=== PATIENT | male | born 1970 | race Caucasian/White ===

== ENCOUNTER 2018-10-29 14:48 | Emergency (ER) | payer BC, SELFPAY ==
[2018-10-29 14:49] VITALS: BP 175/121; PULSE 91; RESP 17; TEMP 36.8; O2SAT 95; BMI 37.0
--- NOTE | 2018-10-29 16:12 | EKG12_ITS ---
Test Reason : Blood Pressure : / mmHG Vent. Rate : 081 BPM Atrial Rate : 081 BPM P-R Int : 162 ms QRS Dur : 094 ms QT Int : 370 ms P-R-T Axes : 086 077 049 degrees QTc Int : 429 ms Normal sinus rhythm with sinus arrhythmia Normal ECG Confirmed by AMANDA DELA CRUZ, BASSAM ([id number]), scientific editor CRISTHIAN CRAMER ([id number]) on 10/31/2018 9:00:06 AM Referred By: LARA Confirmed By:BASSAM PATEL MD
--- NOTE | 2018-10-29 16:21 | NURSING ---
NO OLD EKGS
--- NOTE | 2018-10-29 16:22 | ED.DCSUM_ITS ---
History of Present Illness Chief Complaint: Hypertension Detail of Chief Complaint: Sent from urgent care for high blood pressure Informant: Patient Onset: Month(s) - Told his blood pressure was elevated when he last saw his doctor 2017. Context: Gradual Onset Timing: Continuous Quality: Asymptomatic high blood pressure Location: Not applicable Current Severity: Moderate Maximum Severity: Moderate Worsened by: Unknown Relieved by: Nothing Associated Symptoms: No associated symptoms Narrative: Patient is a 48-year-old male with history of GERD. He was told his blood pressure was elevated 2017. He did not follow-up with his doctor. He is present on no antihypertensive medications. Denies headache. Denies visual, ocular auditory symptoms. He denies neck pain. He denies card iac respiratory symptoms. He denies GI symptoms other than heartburn secondary to GERD. He denies black or maroon stool. He denies orthostatic symptoms. He denies paresthesia, anesthesia or motor weakness. He denies problems with balance or gait. He has been taking NSAIDs for generalized pain. Prior similar symptoms: No Recent Illness/Hospitalization: No - Past Medical History (1) History of gastroesophageal reflux (GERD) Status: Acute Past Medical History - Allergies and Home Meds Allergies/Adverse Reactions: Allergies No Known Allergies Allergy (Verified 10/29/18 14:49) Primary Care Physician: Edmar Faustin NP-C [Primary Care Provider] - Prior records reviewed: Yes Surgical History: no surgical history Lives: Spouse/ Significant Other Smoking Status: Never smoker Alcohol: Occasional Drugs: None Review of Systems General: Denies: Chills, Fever, Sweats Eyes: Denies: Visual changes - bilaterally, Blurred Vision - bilaterally, Diplopia ENT: Denies: Rhinorrhea, Sore throat Cardiovascular: Denies: Chest pain, Palpitations Respiratory: Denies: Dyspnea, Cough, Dyspnea on exertion Gastrointestinal: Denies: Abdominal pain, Nausea, Vomiting, Diarrhea, Melena, Hematochezia Genitourinary: Denies: Dysuria, Hematuria, Frequency Musculoskeletal: Denies: Back pain, Extremity Pain Skin: Denies: Rash, Wounds Neurological: Denies: Headache, Weakness, Parasthesia, Numbness Hematologic: Denies: Easy bruising, Easy bleeding Allergy: Denies: Uticaria, Swelling of the mouth, Swelling of the tongue Physical Exam Vital Signs/Narrative: Vital Signs Temp Pulse Resp BP Pulse Ox 10/29/18 14:49 98.3 F 91 17 175/121 H 95 Inital Vital Signs reviewed: Yes General: Well nourished, Well developed, No Acute Distress Head: Normocephalic, Atraumatic. Negative for: Tenderness Eyes: Perrl, EOMI. Negative for: Pale conjunctiva, Scleral icterus ENT: Moist mucous membranes, No rhinorrhea, TM's clear. Negative for: Nasal con gestion, Sinus tenderness Neck: Supple, Nontender, No lymphadenopathy, No JVD Cardiovascular: Regular rate, Regular rhythm, No murmurs, Normal S1, Normal S2 Respiratory: No distress, CTA bilaterally, Chest nontender Abdomen: Soft, Nontender, Nondistended, Normal bowel sounds Back: Nontender, Normal Inspection. Negative for: CVA tenderness, Spinal tenderness Extremities: Nontender, No edema Skin: Normal color, No rash Neurological: Alert, Oriented x3, Cranial nerves II-XII grossly intact, Normal Strength, Normal Sensation, Normal DTR - There is no clonus or Babinski sign., Normal Gait Psychological: Normal affect, Normal Mood Diagnostic/Tx/Re-eval Laboratory Results 10/29/18 10/29/18 10/29/18 16:30 16:30 17:36 WBC 8.7 RBC 4.99 Hgb 15.0 Hct 45.3 MCV 90.8 MCH 30.1 MCHC 33.1 RDW Std Deviation 49.5 H RDW Coeff of Octavio 14.9 H Plt Count 177 MPV 10.5 Immature Gran % (Auto) 0.600 Neut % (Auto) 78.9 H Lymph % (Auto) 10.8 L [place] % (Auto) 7.8 Eos % (Auto) 1.4 Baso % (Auto) 0.5 Absolute Neuts (auto) 6.9 Absolute Lymphs (auto) 0.94 Nucleated RBC % 0 Sodium 137 Potassium 3.5 Chloride 103 Carbon Dioxide 27.0 Anion Gap 7 BUN 12 Creatinine 0.85 Estim Creat Clear Calc 115.66 Est GFR (MDRD) Af Amer 125 Est GFR (MDRD) Non-Af 103 BUN/Creatinine Ratio 14.2 Glucose 110 H Calcium 9.2 Urine Color Yellow Urine Clarity Sl. Cloudy Urine pH 7.0 Ur Specific [place] 1.010 Urine Protein Negative Urine Glucose (UA) Normal Urine Ketones Negative Urine Occult Blood Negative Urine Nitrite Negative Urine Bilirubin Negative Urine Urobilinogen Normal Ur Leukocyte Esterase Negative Urine RBC 0 SEEN Urine WBC 0 SEEN Ur Squamous Epith Cells 0 SEEN Amorphous Sediment 1+ Urine Bacteria 0 SEEN Urine Mucus 0 SEEN There is no evidence of endorgan injury. Since there is no evidence of endorgan injury patient will receive lisinopril in the department and discharged with prescription for lisinopril. - EKG Initial EKG Interpretation: Sinus Rhythm - Ventricular rate is 81. WI interval is 160 ms. QS duration is 94 ms. QT durations 370 ms a QTC of 429 ms. [place] is normal. There is evidence of respiratory variation. Otherwise the EKG is normal. - Medical Decision Making With no recent labs and elevated blood pressure since January 2018 will obtain blood work to evaluate for endorgan injury. If blood pressure remains elevated we will treat his elevated blood pressure. There is a concern for renal injury since he has been taking NSAIDs. ED Disposition - Plan for ED Patient: Disposition: Home or Assisted Living Diagnosis: Hypertension Instructions: HYPERTENSION, New (Begin Treatment) Prescriptions: Lisinopril [Zestril] 10 mg PO DAILY #30 tab Prescription Printed Referrals: Edmar Faustin, JUANCARLOS-C [Primary Care Provider] - 1-2 Weeks
[2018-10-29 16:38] VITALS: BP 170/116; PULSE 86; RESP 16; O2SAT 96
[2018-10-29 17:00] LABS: Anion Gap 7 (5-15); BUN 12 mg/dL (7-18); BUN/Creat Ratio 14.2 RATIO (10-20); Calcium,Total 9.2 mg/dL (8.5-10.1); Chloride 103 mmol/L (98-107); Creatinine, Serum 0.85 mg/dL (0.70-1.30); EST Glomerular Filtration Rate 103 mL/min (>60); Est Glom Filt Rate - Afr Amer 125 mL/min (>60); Estimated Creatinine Clearance 115.66 ml/min; Glucose 110 mg/dL (74-106); Potassium 3.5 mmol/L (3.5-5.1); Sodium Level 137 mmol/L (136-145)
[2018-10-29 17:09] LABS: Absolute Lymphocyte Count 0.94 X10^3/uL (0.83-4.51); Absolute Neutrophil Count 6.9 X10^3/uL (2.0-7.7); Basophil# 0.04 X10^3/uL; Basophil% 0.5 % (0-1); Eosinophil# 0.12 X10^3/uL; Eosinophils% 1.4 % (0-5); Hematocrit 45.3 % (40-54); Lymphocyte # 0.94 X10^3/ul (4.0); Lymphocyte % 10.8 % (19-41); Mean Corp Hgb Conc 33.1 g/dL (32-36); Mean Corpuscular Hgb 30.1 pg (27.0-32.0); Mean Corpuscular Volume 90.8 fL (80-94); Mean Platelet Vol. 10.5 fl (6.2-12.0); Monocyte# 0.68 X10^3/uL; Monocyte% 7.8 % (0-10); NRBC Flagged by Analyzer 0 % (0-5); Neutrophil % 78.9 % (47-70); Platelet Count 177 K/mm3 (150-450); RBC Distribution Width CV 14.9 % (11.6-14.6); RBC Distribution Width SD 49.5 fl (35.1-43.9); Red Blood Count 4.99 M/mm3 (4.6-6.2); White Blood Count 8.7 K/mm3 (4.4-11.0)
[2018-10-29 17:42] LABS: Bacteria 0 SEEN /hpf (None Seen); Mucous, Urine 0 SEEN /hpf (<or=2+); Red Blood Cells-Urine 0 SEEN /hpf (0-5); Squamous Epithelial Cells - UA 0 SEEN /hpf (0-5)
[2018-10-29 18:26] LABS: Color, Urine Yellow (Yellow); Glucose, Dipstick Normal (Normal); Ketone-Dipstick Negative (Negative); Leukocyte Esterase-Dipstick Negative /ul (Negative); Nitrite-Dipstick Negative (Negative); Occult Blood-Urine Negative /ul (Negative); Protein-Dipstick Negative (Negative); Urine Bilirubin Dipstick Negative (Negative); Urine Clarity Sl. Cloudy (Clear); Urine Urobilinogen Normal (Normal)
[2018-10-29 18:34] LABS: Amorphous Sediment 1+; White Blood Cells 0 SEEN /hpf (0-5)
[2018-10-29 18:45] VITALS: BP 200/113; PULSE 92; RESP 16; O2SAT 96
[2018-10-29 18:51] VITALS: BP 187/107
[2018-10-29] MEDS: Lisinopril 10 MG Tablet PO (20:49)
[2018-10-29 20:50] VITALS: BP 167/121; PULSE 89; RESP 18; O2SAT 96
== END 2018-10-29 20:55 | disposition home or self-care (01) ==
PROVIDERS: Emergency Provider Emergency Medicine; Family Provider Nurse Practitioner Family; PCP Nurse Practitioner Family
DX: I10 Essential (primary) hypertension (principal); K21.9 Gastro-esophageal reflux disease without esophagitis
CPT/HCPCS: 80048; 81001; 85025; 93005; 99285

== ENCOUNTER 2023-01-16 15:20 | Inpatient (IN) | payer BC, SELFPAY ==
[2023-01-16] VITALS (8 sets, daily range): BP systolic 157–216; BP diastolic 07–147; PULSE 80–121; RESP 16–18; TEMP 36.1–37.2; O2SAT 94–100; BMI 32.7; BMI 32.2
--- NOTE | 2023-01-16 16:01 | EX.ED.DYSGE1 ---
HPI <NOEMÍ Ferro - Last Filed: 01/16/23 17:45> History of Present Illness Chief Complaint: Abd Pain Narrative Narrative: Patient is a 52-year-old male with history of hypertension, alcohol abuse who presents to the emergency department for abdominal pain has been ongoing for 24 hours. Patient states he has nausea and vomiting, significant abdominal cramping. He does have history of pancreatitis 15 years ago. He is does chew tobacco. He does use marijuana however no other drugs. He states that the cramping has been ongoing and has been getting worse. He is here for evaluation. Denies any fever or chills, denies any blood in his stool or vomit PFSH <NOEMÍ Ferro - Last Filed: 01/16/23 17:45> PFSH Home Medications Omeprazole [Prilosec] 20 mg PO DAILY 06/11/16 [History Last Taken 06/11/16] albuterol sulfate 90 mcg/actuation aerosol inhaler 2 puff inhalation Q4H PRN PRN Wheezing 10/29/18 [History Last Taken Unknown] lisinopril 10 mg tablet 10 mg PO DAILY #30 tabs 10/29/18 [Rx Last Taken Unknown] Allergy/AdvReac Type Severity Reaction Status Date / Time No Known Allergies Allergy Verified 01/16/23 15:22 Social History Smoking Status: Never smoker ROS <NOEMÍ Ferro - Last Filed: 01/16/23 17:45> ROS ED ROS Narrative Constitutional: Negative for fever, chills, weight loss, weakness Eyes: Negative for vision loss, vision change, double vision ENT: Negative for any sore throat, ear pain, congestion Cardiovascular: Negative for any chest pain, tightness, palpitations Respiratory: Negative for any cough, sputum production, hemoptysis, dyspnea, dyspnea on exertion, orthopnea Gastrointestinal: Negative for any diarrhea, constipation, blood in stool, blood in vomit. Positive for abdominal pain, nausea, vomiting : Negative for any urinary frequency, dysuria, retention, blood in urine Muscle skeletal: Negative for any muscle joint pain, stiffness, myalgias, arthralgias, neck pain, back pain Neurological: Negative for any headache, syncope, numbness or tingling, dizziness Skin: Negative for any rashes, lumps, itching, abrasions, lacerations Psychiatric: Negative for any depression, anxiety, stress, suicidal ideation, homicidal ideation Hematologic: Negative for any easy bruising, excessive bruising, easy bleeding Allergies: Negative for any eczema, hives, rash EXAM <NOEMÍ Ferro - Last Filed: 01/16/23 17:45> Physical Exam Narrative Exam Narrative: Vital signs reviewed. Patient does appear to be in mild discomfort. HEET: Head normocephalic atraumatic, TMs clear bilaterally. Posterior pharynx is clear, moist mucous membranes. Nares clear bilaterally. Neck: Supple with no lymphadenopathy or tenderness. No signs of meningismus, negative jolt sign. Cardiac: Regular rate and rhythm no murmurs gallops or rubs, equal peripheral pulses bilaterally. Respiratory: Lungs clear to auscultation bilaterally. No chest tenderness. Abdomen: Soft, nondistended. No abdominal bruit or pulsatile masses. No hepatosplenomegaly. Patient tenderness worse to the left lower quadrant, right upper quadrant. It is slight generalized, difficult to localize. Active bowel sounds. Extremities: No peripheral edema, no signs of gross trauma or deformity. Active full range of motion of all extremities. Neuro: Cranial nerves II through XII intact, no focal neurological deficits. Skin: Clean dry and intact with no rash, purpura, petechiae, vesicles or pustules. Backs/flank: No CVA tenderness, no midline spinal tenderness, no deformity. Psych: Normal mood and affect. No SI, HI or acute psychosis. Const Vital Signs: 01/16/23 15:21 01/16/23 16:50 Temperature 97 F L Temperature Source Temporal Pulse Rate 103 H 87 Respiratory Rate 18 16 Blood Pressure 191/147 H 213/117 H Blood Pressure Mean 161 149 Pulse Ox 97 96 Oxygen Delivery Method Room Air <Dr. Joe Mccoy MD - Last Filed: 01/16/23 16:28> Physical Exam Const Vital Signs: 01/16/23 15:21 01/16/23 16:50 Temperature 97 F L Temperature Source Temporal Pulse Rate 103 H 87 Respiratory Rate 18 16 Blood Pressure 191/147 H 213/117 H Blood Pressure Mean 161 149 Pulse Ox 97 96 Oxygen Delivery Method Room Air MDM <NOEMÍ Ferro - Last Filed: 01/16/23 17:45> [facility] Lab Data Labs: Laboratory Results - last 24 hr 01/16/23 15:30 WBC 19.9 H RBC 6.39 H Hgb 15.5 Hct 49.6 MCV 77.6 L MCH 24.3 L MCHC 31.3 L RDW Std Deviation 51.3 H RDW Coeff of Octavio 19.3 H Plt Count 264 MPV 10.6 Immature Gran % (Auto) 0.500 Neut % (Auto) 89.0 H Lymph % (Auto) 3.[address] [place] % (Auto) 6.5 Eos % (Auto) 0.1 Baso % (Auto) 0.2 Absolute Neuts (auto) 17.7 H Absolute Lymphs (auto) 0.73 L Sodium 135 L Potassium 3.2 L Chloride 98 Carbon Dioxide 28.0 Anion Gap 9 BUN 12 Creatinine 0.89 Estim Creat Clear Calc 102.53 Est GFR (MDRD) Af Amer 116 Est GFR (MDRD) Non-Af 96 BUN/Creatinine Ratio 13.5 Glucose 107 H Calcium 9.1 Total Bilirubin 1.80 H AST 37 ALT 50 Alkaline Phosphatase 83 Total Protein 8.0 Albumin 3.9 Globulin 4.1 Albumin/Globulin Ratio 1.0 Lipase 2476 H Radiography Diagnostic Testing: Clinical Impression(s) from Imaging Studies Abdomen/Pelvis CT 01/16/23 16:57 IMPRESSION: Significant inflammation surrounding the pancreas. Correlate for acute pancreatitis. No fluid collection. Cholelithiasis without findings to suggest acute cholecystitis. No biliary ductal dilatation or choledocholithiasis seen. Electronically Signed: Moiz Wheat MD at 17:23 EDT , Treatment and Re-Evaluation :: Patient appears in mild discomfort secondary to abdominal pain. Presented to the emergency department for 2 days of abdominal pain, nausea and vomiting. Patient states the pain has been getting worse, he does have history of pancreatitis. On initial examination, differential diagnose includes acute appendicitis, diverticulitis, acute cholecystitis, pancreatitis. Patient will receive basic laboratory values including a CBC CMP, lipase. Patient will receive a CT scan of the abdomen pelvis IV contrast, fluids, Zofran as well as some pain medicine. Patient's laboratory values were positive for leukocytosis with white blood count of 19.9. Patient's chemistries show slight hyponatremia with a potassium of 3.2, sodium 135. Total bili was 1.8, patient's lipase was grossly elevated at 2476. Patient CT scan of the abdomen pelvis shows significantly inflammation surrounding the pancreas. Acute pancreatitis, cholelithiasis without findings to suggest acute cholecystitis. No biliary ductal dilatation or choledocholithiasis seen. I spoke with hospitalist, patient did have relief severe pain after 2 doses of morphine, Toradol. I spoke with the hospitalist regarding the patient's elevated blood pressure, the patient will have that taken care of up on the floor. Hospitalist is aware. At this time, I spoke with the patient, I spoke with him regarding his drinking, at this time, patient is stable for admission <Dr. Joe Mccoy MD - Last Filed: 01/16/23 16:28> [facility] Lab Data Labs: Laboratory Results - last 24 hr 01/16/23 15:30 WBC 19.9 H RBC 6.39 H Hgb 15.5 Hct 49.6 MCV 77.6 L MCH 24.3 L MCHC 31.3 L RDW Std Deviation 51.3 H RDW Coeff of Octavio 19.3 H Plt Count 264 MPV 10.6 Immature Gran % (Auto) 0.500 Neut % (Auto) 89.0 H Lymph % (Auto) 3.[address] [place] % (Auto) 6.5 Eos % (Auto) 0.1 Baso % (Auto) 0.2 Absolute Neuts (auto) 17.7 H Absolute Lymphs (auto) 0.73 L Sodium 135 L Potassium 3.2 L Chloride 98 Carbon Dioxide 28.0 Anion Gap 9 BUN 12 Creatinine 0.89 Estim Creat Clear Calc 102.53 Est GFR (MDRD) Af Amer 116 Est GFR (MDRD) Non-Af 96 BUN/Creatinine Ratio 13.5 Glucose 107 H Calcium 9.1 Total Bilirubin 1.80 H AST 37 ALT 50 Alkaline Phosphatase 83 Total Protein 8.0 Albumin 3.9 Globulin 4.1 Albumin/Globulin Ratio 1.0 Lipase 2476 H Radiography Diagnostic Testing: Clinical Impression(s) from Imaging Studies Abdomen/Pelvis CT 01/16/23 16:57 IMPRESSION: Significant inflammation surrounding the pancreas. Correlate for acute pancreatitis. No fluid collection. Cholelithiasis without findings to suggest acute cholecystitis. No biliary ductal dilatation or choledocholithiasis seen. Electronically Signed: Moiz Wheat MD at 17:23 EDT , Treatment and Re-Evaluation Comments:: I have personally performed a face to face assessment of the patient and have reviewed the ALPHONSO Note. I performed a substantive portion of the visit including all aspects of the following. My castro findings include: History is gradual onset of a couple days lower abdominal pain worse on the left, along with nonbloody vomiting and diarrhea no fevers or chills. Exam is very tender in the left lower quadrant with some voluntary guarding, no rebound tenderness. Less tender left upper quadrant. Otherwise benign. Medical Decison Making. Suspect diverticulitis is most likely etiology, CT indicated along with labs given how tender he is. Other additions or changes: [None] Discharge Plan Triage Chief Complaint: Abd Pain ED Midlevel Provider: Delmer Cormier ED Provider: Joe Mccoy Dx/Rx/DC Orders Clinical Impression: History of medication noncompliance, Alcohol abuse, Acute alcoholic pancreatitis, Hypertension Prescriptions: No Action Omeprazole [Prilosec] 40 MG capsule 20 mg PO DAILY albuterol sulfate 1 PUFF inhaler 2 puff inhalation Q4H PRN PRN (Reason: Wheezing) Patient Comments: Inhale 2 Puffs as instructed every 6 hours as needed. lisinopril 10 MG tablet 10 mg PO DAILY Qty: 30 0RF Primary Care Provider: Edmar Faustin NP Referrals: Edmar Faustin NP, [employer]-C [Primary Care Provider] - Disposition Disposition: Acute Care Hospital [facility]
[2023-01-16] MEDS: 0.9% Normal Saline (1000mL) 1,000 ML 1000 ML IV (16:10)
[2023-01-16] MEDS: Ondansetron 4 MG/2 ML Vial IV (16:10)
[2023-01-16] MEDS: Morphine 4 MG/ML Syringe IV ×4 (16:11→23:16)
[2023-01-16] MEDS: Ketorolac 15 MG/ML Vial IV (16:29)
[2023-01-16 16:41] LABS: Hematocrit 49.6 % (40-54); Hemoglobin 15.5 g/dL (13.0-16.5); Mean Corp Hgb Conc 31.3 g/dL (32-36); Mean Corpuscular Hgb 24.3 pg (27.0-32.0); Mean Corpuscular Volume 77.6 fL (80-94); Mean Platelet Vol. 10.6 fl (6.2-12.0); Platelet Count 264 K/mm3 (150-450); RBC Distribution Width CV 19.3 % (11.6-14.6); RBC Distribution Width SD 51.3 fl (35.1-43.9); Red Blood Count 6.39 M/mm3 (4.6-6.2); White Blood Count 19.9 K/mm3 (4.4-11.0)
[2023-01-16 16:42] LABS: Absolute Neutrophil Count 17.7 X10^3/uL (2.0-7.7); Basophil% 0.2 % (0-1); Eosinophils% 0.1 % (0-5); Lymphocyte # 0.73 X10^3/ul (0.83-4.51); Lymphocyte % 3.7 % (19-41); Monocyte% 6.5 % (0-10); Neutrophil # 17.69 X10^3/uL (2.7-7.7); POSITIVE COUNT NO; POSITIVE DIFFERENTIAL NO; POSITIVE MORPHOLOGY NO
[2023-01-16 16:43] LABS: Absolute Lymphocyte Count 0.73 X10^3/uL (0.83-4.51); Basophil# 0.03 X10^3/uL; Eosinophil# 0.02 X10^3/uL; Monocyte# 1.29 X10^3/uL
[2023-01-16 16:47] LABS: AST(SGOT) 37 U/L (15-37); Alanine Aminotransfer ALT/SGPT 50 U/L (16-61); Albumin, Serum 3.9 g/dL (3.2-5.0); Alkaline Phosphatase 83 U/L (45-117); Anion Gap 9 (5-15); BUN 12 mg/dL (7-18); BUN/Creat Ratio 13.5 RATIO (10-20); Calcium,Total 9.1 mg/dL (8.5-10.1); Chloride 98 mmol/L (98-107); Creatinine, Serum 0.89 mg/dL (0.70-1.30); EST Glomerular Filtration Rate 96 mL/min (>60); Est Glom Filt Rate - Afr Amer 116 mL/min (>60); Estimated Creatinine Clearance 102.53 ml/min; Globulin 4.1 g/dL (2.2-4.2); Glucose 107 mg/dL (74-106); Lipase 2476 U/L (13-75); Potassium 3.2 mmol/L (3.5-5.1); Sodium Level 135 mmol/L (136-145)
--- NOTE | 2023-01-16 16:57 | CT_ITS ---
STUDY: CT ABDOMEN AND PELVIS WITH CONTRAST REASON FOR EXAM: Male, 52 years old. abdominal pain RADIATION DOSAGE (If Supplied By Facility): CTDIvol = ( 16.32 ) mGy, DLP = ( 1268.11 ) mGycm TECHNIQUE: IV 100mL Isovue-300 was administered. Transaxial images were obtained from the dome of the diaphragm to the symphysis pubis in the portal venous phase. Multiplanar coronal and sagittal images were reformatted. Individualized Dose Optimization Techniques Were Used For This CT. COMPARISON: No relevant prior comparison study available FINDINGS: LOWER CHEST: Lung bases are clear. No cardiomegaly or pericardial effusion. LIVER: The liver is normal in size, shape, and attenuation. No focal mass. GALLBLADDER AND BILIARY TREE: Small stone in the gallbladder lumen. No wall thickening or adjacent inflammation. No intra- or extrahepatic biliary ductal dilation. No choledocholithiasis seen. PANCREAS: The pancreatic parenchyma is homogenous without ductal dilatation. There is significant surrounding inflammatory stranding. No fluid collection seen. There is free fluid tracking along both paracolic gutters into the pelvis. SPLEEN: Normal size without focal cystic or solid mass. ADRENAL GLANDS: No nodules. KIDNEYS AND URETERS: Normal renal size and position. No hydronephrosis or nephrolithiasis. Simple cyst at the midpole of the left kidney. No specific follow-up recommended. PERITONEUM: No free air. Fluid tracks into the pelvis. No other fluid collection. BOWEL: Small hiatal hernia. Normal caliber small bowel. No obstruction. Colonic diverticulosis noted without diverticulitis. This is greatest at the sigmoid colon. No evidence of acute appendicitis. LYMPH NODES: No enlarged mesenteric or retroperitoneal lymph nodes. VESSELS: The aorta is normal in caliber with mild atherosclerotic calcification. URINARY BLADDER: Unremarkable. REPRODUCTIVE ORGANS: No pelvic masses. ABDOMINAL WALL: No discrete abdominal or pelvic wall hernia. BONES: No lytic or blastic abnormality. Mild degenerative change of the spine. Vacuum disc phenomenon at the lower lumbar spine. CT/Abdomen/Pelvis W IV Cont ONLY IMPRESSION: Significant inflammation surrounding the pancreas. Correlate for acute pancreatitis. No fluid collection. Cholelithiasis without findings to suggest acute cholecystitis. No biliary ductal dilatation or choledocholithiasis seen. Electronically Signed: Moiz Wheat MD at 17:23 EDT ,
--- NOTE | 2023-01-16 18:51 | PCM.HP.STD ---
HPI - General General Date of Admission: 01/16/23 Date of Service: 01/16/23 Chief Complaint: Abdominal pain HPI Narrative TASHIA JUAREZ, is a 52 M who presents to the emergency room at [facility] for evaluation of abdominal pain that has been present since last Monday. Pain basically is over the entire abdomen at this time, patient had quite a bit of alcohol to drink last Monday, he began having the abdominal pain Monday morning. Patient has had a past history of pancreatitis approximately 15 years ago. Labs obtained in the emergency room included a CBC which was abnormal for white blood cell count of 19.9, patient's potassium was low at 3.2, bilirubin was elevated at 1.8 and lipase was elevated to 2476. CT of the abdomen and pelvis was obtained which showed have again inflammation surrounding the pancreas, there was cholelithiasis noted without acute cholecystitis, no biliary ductal dilatation was noted and there was no evidence of choledocholithiasis. Patient will be admitted to [place] [address] for acute recurrent pancreatitis with hypokalemia, he will be given IV fluids and potassium replacement, patient has a history of hypertension but is not taking any medications-he went off these medications sometime ago. Patient will be placed on IV Vasotec, he will need to follow-up with his PCP regarding his blood pressure as an outpatient. Patient was placed on a clear liquid diet. Talked with the patient concerning any alcohol usage when he returns home and told him there was not a safe level of alcohol to imbibe due to the pancreatitis history. [facility] Home Medications Omeprazole [Prilosec] 20 mg PO DAILY 06/11/16 [History Last Taken 01/16/23] Allergy/AdvReac Type Severity Reaction Status Date / Time No Known Allergies Allergy Verified 01/16/23 15:22 Social History Smoking Status: Never smoker ROS Constitutional Constitutional: Denies anorexia, change in weight, chills, fatigue, fever(s), night sweats or weakness Eyes Eyes: Denies blurry vision, change in vision, discharge from eye(s) or eye pain Cardiovascular Cardiovascular: Denies chest pain, claudication, dyspnea on exertion, edema, lightheadedness, orthopnea or palpitations Respiratory/Chest Respiratory/Chest: Denies cough, hemoptysis, shortness of breath at rest or shortness of breath with exertion Gastrointestinal Gastrointestinal: Reports abdominal pain; Denies coffee ground emesis, constipation, diarrhea, dyspepsia, hematemesis, hematochezia, melena, nausea or vomiting Genitourinary Genitourinary: Denies dysuria, hematuria, urinary frequency, urinary hesitancy, urinary incontinence or urinary urgency Musculoskeletal Musculoskeletal: Denies back pain, joint pain, joint stiffness, joint swelling, myalgias or neck pain Neurologic Neurologic: Denies abnormal gait, abnormal speech, dizziness, focal weakness, headache(s), loss of vision, numbness, other visual disturbances, paresthesias, syncope or tingling Psychiatric Psychiatric: Denies anxiety, cognitive impairment, depression, irritability, mood swings or suicidal ideation Endocrine Endocrinology: Denies change in body appearance, cold intolerance, excessive sweating, heat intolerance, polydipsia or polyuria Hematologic/Lymphatic Hematologic/Lymphatic: Denies none, anemia, easy bleeding, easy bruising or lymphadenopathy Allergic/Immunologic Allergic/Immunologic: Denies rhinitis, urticaria, eczemia or asthma Vital Signs Vital Signs Vital Signs: 01/16/23 15:21 01/16/23 16:50 01/16/23 17:48 Temperature 97 F L Temperature Source Temporal Pulse Rate 103 H 87 80 Respiratory Rate 18 16 16 Respiratory Effort Blood Pressure 191/147 H 213/117 H 205/106 H Blood Pressure Mean 161 149 139 Blood Pressure Source Blood Pressure Position Blood Pressure Location Pulse Ox 97 96 99 Oxygen Delivery Method Room Air Room Air 01/16/23 18:35 01/16/23 18:42 Temperature 99 F Temperature Source Oral Pulse Rate 90 Respiratory Rate 18 Respiratory Effort Normal Blood Pressure 175/102 H Blood Pressure Mean 126 Blood Pressure Source Monitor Blood Pressure Position Semi-Fowlers Blood Pressure Location Right Arm Pulse Ox 95 Oxygen Delivery Method Room Air Weight Weight: 102 kg Body Mass Index (BMI) 32.2 Physical Exam Const alert, oriented x3, no apparent distress and healthy appearing General Appearance: cooperative, well kempt and well developed Orientation / Consciousness: awake, oriented to person, oriented to place and oriented to time HEENT normocephalic, head/scalp atraumatic, hearing grossly normal bilaterally and moist oral mucous membranes Eyes PERRL, EOMs intact bilaterally and conjunctivae normal Neck supple, no JVD, thyroid normal and no carotid bruits General: trachea midline Resp normal respiratory effort, no retractions, no use of accessory muscles and clear to auscultation bilaterally Auscultation: Negative for rales, rhonchi or wheezes Cardio regular rate, regular rhythm, S1 normal heart sound, S2 normal heart sound, no murmurs, no rub and no gallops GI non-distended GI Narrative: Patient's abdomen is diffusely tender, no rebound abdominal tenderness was noted, bowel sounds are present in all 4 quadrant Extremity no clubbing, cyanosis or edema Skin no rashes or lesions noted General Skin Exam: no breakdown Neuro oriented x3, CN's II-XII intact bilaterally, moves all extremities, no focal motor deficits and no sensory deficits noted Sensorium / Orientation: awake, alert, oriented to person, oriented to place and oriented to time Speech: speech normal Psych affect normal Results Lab / Micro Data 01/16/23 15:30 01/16/23 15:30 Labs: Laboratory Results - last 24 hr 01/16/23 15:30: WBC 19.9 H, RBC 6.39 H, Hgb 15.5, Hct 49.6, MCV 77.6 L, MCH 24.3 L, MCHC 31.3 L, RDW Std Deviation 51.3 H, RDW Coeff of Octavio 19.3 H, Plt Count 264, MPV 10.6, Immature Gran % (Auto) 0.500, Neut % (Auto) 89.0 H, Lymph % (Auto) 3.7 L, [place] % (Auto) 6.5, Eos % (Auto) 0.1, Baso % (Auto) 0.2, Absolute Neuts (auto) 17.7 H, Absolute Lymphs (auto) 0.73 L, Sodium 135 L, Potassium 3.2 L, Chloride 98, Carbon Dioxide 28.0, Anion Gap 9, BUN 12, Creatinine 0.89, Estim Creat Clear Calc 102.53, Est GFR (MDRD) Af Amer 116, Est GFR (MDRD) Non-Af 96, BUN/Creatinine Ratio 13.5, Glucose 107 H, Calcium 9.1, Total Bilirubin 1.80 H, AST 37, ALT 50, Alkaline Phosphatase 83, Total Protein 8.0, Albumin 3.9, Globulin 4.1, Albumin/Globulin Ratio 1.0, Lipase 2476 H Radiology Impression Abdomen/Pelvis CT 01/16/23 16:57 IMPRESSION: Significant inflammation surrounding the pancreas. Correlate for acute pancreatitis. No fluid collection. Cholelithiasis without findings to suggest acute cholecystitis. No biliary ductal dilatation or choledocholithiasis seen. Electronically Signed: Moiz Wheat MD at 17:23 EDT , Assessment & Plan Assessment/Plan (1) Acute alcoholic pancreatitis: PLAN: Plan 1. Acute recurrent pancreatitis secondary to alcohol use-patient was admitted to [facility], he will receive IV fluids, he will receive IV pain medications. Patient was placed on a clear liquid diet. #2 essential hypertension-noncompliant with outpatient medication, patient was placed on IV Vasotec and blood pressure will be monitored #3 GERD-patient was placed on IV proton #4 intermittent excessive alcohol use-patient states that he is never gone through withdrawal in the past after stopping drinking, I have ordered Ativan IV as needed for anxiety or agitation. Total clinical time spent by myself addressing the patient's medical issues, reviewing all of his data, and collaborating with patient's care team: 40 minutes Charges/Coding Visit Charges Inpatient E&M: 08501 Init Hosp L1
[2023-01-16] MEDS: Enalaprilat 1.25 MG/ML Vial 2.5 MG IV ×2 (19:48→23:31)
[2023-01-16] MEDS: 0.9% Normal Saline (1000mL) 1,000 ML 180 ML IV (19:50)
[2023-01-16] MEDS: Pantoprazole Sodium 40 MG in 0.9% Normal Saline (100mL MB+) 100 ML 330 MG IV (20:00)
[2023-01-16] MEDS: 0.9% Saline Lock 10 ML Syringe IV (20:02)
[2023-01-16] MEDS: Potassium Chloride 10mEq/100mL 10 MEQ/100 ML IV.SOLN. 100 MEQ IV BOLUS ×2 (21:31→23:13)
[2023-01-16] MEDS: hydrALAZINE 20 MG/ML Vial 10 MG IV (21:31)
[2023-01-17] VITALS (7 sets, daily range): BP systolic 143–171; BP diastolic 90–102; PULSE 94–111; RESP 16–18; TEMP 36.4–37.7; O2SAT 94–96
[2023-01-17] MEDS: 0.9% Normal Saline (1000mL) 1,000 ML 180 ML IV ×4 (01:53→18:38)
[2023-01-17] MEDS: Morphine 4 MG/ML Syringe IV ×6 (02:14→20:47)
[2023-01-17] MEDS: Enalaprilat 1.25 MG/ML Vial 2.5 MG IV ×3 (05:20→18:39)
[2023-01-17 07:13] LABS: Absolute Lymphocyte Count 0.52 X10^3/uL (0.83-4.51); Basophil# 0.04 X10^3/uL; Basophil% 0.2 % (0-1); Eosinophils% 0.8 % (0-5); Hematocrit 48.2 % (40-54); Hemoglobin 14.3 g/dL (13.0-16.5); Lymphocyte # 0.52 X10^3/ul (0.83-4.51); Lymphocyte % 2.1 % (19-41); Mean Corp Hgb Conc 29.7 g/dL (32-36); Mean Corpuscular Hgb 23.4 pg (27.0-32.0); Mean Corpuscular Volume 78.9 fL (80-94); Monocyte# 1.45 X10^3/uL; NRBC Flagged by Analyzer 0 % (0-5); Neutrophil # 21.95 X10^3/uL (2.7-7.7); Neutrophil % 90.2 % (47-70); POSITIVE DIFFERENTIAL YES; Platelet Count 219 K/mm3 (150-450); RBC Distribution Width CV 19.3 % (11.6-14.6); RBC Distribution Width SD 52.9 fl (35.1-43.9); Red Blood Count 6.11 M/mm3 (4.6-6.2); White Blood Count 24.3 K/mm3 (4.4-11.0)
[2023-01-17 07:36] LABS: Differential Indicated SCAN CRITERIA MET
--- NOTE | 2023-01-17 07:53 | PN.HOSP_ITS ---
Reason for Visit Reason for Visit: Diagnoses Alcohol induced acute pancreatitis without necrosis or infection (01/16/23) Subjective Subjective Still with abdominal pain, but much improved. Drinks 5 beers/day. Objective Data Objective Data Vital Signs: Vital Signs Temp Pulse Resp BP Pulse Ox O2 Del Method 36.4 C L 100 18 150/97 H 95 Room Air 01/17/23 05:22 01/17/23 05:22 01/17/23 05:22 01/17/23 06:44 01/17/23 05:22 01/17/23 05:22 Oxygen Delivery Method Room Air Weight: 102 kg Body Mass Index (BMI) 32.2 Intake & Output: Intake and Output for Last 24 Hours 01/15/23 01/16/23 01/17/23 23:59 23:59 23:59 Intake Total 1210 / 1510 2570 / 2570 Balance 1210 / 1510 2570 / 2570 Lab / Micro Data 01/17/23 06:42 01/17/23 06:42 Labs: Laboratory Results - last 24 hr 01/16/23 15:30: WBC 19.9 H, RBC 6.39 H, Hgb 15.5, Hct 49.6, MCV 77.6 L, MCH 24.3 L, MCHC 31.3 L, RDW Std Deviation 51.3 H, RDW Coeff of Octavio 19.3 H, Plt Count 264, MPV 10.6, Immature Gran % (Auto) 0.500, Neut % (Auto) 89.0 H, Lymph % (Auto) 3.7 L, [place] % (Auto) 6.5, Eos % (Auto) 0.1, Baso % (Auto) 0.2, Absolute Neuts (auto) 17.7 H, Absolute Lymphs (auto) 0.73 L, Sodium 135 L, Potassium 3.2 L, Chloride 98, Carbon Dioxide 28.0, Anion Gap 9, BUN 12, Creatinine 0.89, Estim Creat Clear Calc 102.53, Est GFR (MDRD) Af Amer 116, Est GFR (MDRD) Non-Af 96, BUN/Creatinine Ratio 13.5, Glucose 107 H, Calcium 9.1, Total Bilirubin 1.80 H, AST 37, ALT 50, Alkaline Phosphatase 83, Total Protein 8.0, Albumin 3.9, Globulin 4.1, Albumin/Globulin Ratio 1.0, Lipase 2476 H 01/17/23 06:42: WBC 24.3 H, RBC 6.11, Hgb 14.3, Hct 48.2, MCV 78.9 L, MCH 23.4 L , MCHC 29.7 L D, RDW Std Deviation 52.9 H, RDW Coeff of Octavio 19.3 H, Plt Count 219, MPV 11.0, Immature Gran % (Auto) 0.700, Neut % (Auto) 90.2 H, Lymph % (Auto) 2.[address] L, [place] % (Auto) 6.0, Eos % (Auto) 0.8, Baso % (Auto) 0.2, Absolute Neuts (auto) 22.0 H, Absolute Lymphs (auto) 0.52 L, Nucleated RBC % 0 Radiography Diagnostic Testing: Radiology Impression Abdomen/Pelvis CT 01/16/23 16:57 IMPRESSION: Significant inflammation surrounding the pancreas. Correlate for acute pancreatitis. No fluid collection. Cholelithiasis without findings to suggest acute cholecystitis. No biliary ductal dilatation or choledocholithiasis seen. Electronically Signed: Moiz Wheat MD at 17:23 EDT Reading Location ID and State: [address] [place] [address] Tel , Service support , Physical Exam Const alert and no apparent distress HEENT head/scalp atraumatic and moist oral mucous membranes Resp normal respiratory effort, no retractions, no use of accessory muscles and clear to auscultation bilaterally Cardio regular rate, regular rhythm, S1 normal heart sound and S2 normal heart sound GI normal to inspection, nondistended, normoactive bowel sounds, soft to palpation, non-tender and non-distended Neuro Sensorium / Orientation: awake and alert Assessment & Plan Assessment/Plan (1) Acute alcoholic pancreatitis: PLAN: Continue IVF, pain control. CT abd/pelvis showed pancreatic inflammation. Cholelithiasis w/o cholecystitis, biliary duct dilation Avoid alcohol completely. Cannot rule out chronic sub clinical smoldering pancreatitis. CLD Advised pt to completely stop alcohol so another acute event occurs. (2) Alcohol abuse: PLAN: Thiamine and folate PRN lorazepam Normally, pt drinks 5 beers/day (3) Leukocytosis: PLAN: Likely reactive from pancreatitis. Monitor (4) Hypertensive urgency: PLAN: 2/2 pancreatitis and untreated baseline HTN 213/117 on admission. Currently improved On scheduled enalprilat If tolerating PO, transition to oral meds. PLAN: Plan GERD-patient was placed on IV proton VTE prophylaxis: add enoxaparin. Charges/Coding Visit Charges Inpatient E&M: 24898 Subs Hosp L2
[2023-01-17 07:54] LABS: Anion Gap 6 (5-15); BUN 13 mg/dL (7-18); BUN/Creat Ratio 14.5 RATIO (10-20); Calcium,Total 7.8 mg/dL (8.5-10.1); Chloride 103 mmol/L (98-107); EST Glomerular Filtration Rate 95 mL/min (>60); Est Glom Filt Rate - Afr Amer 115 mL/min (>60); Estimated Creatinine Clearance 101.39 ml/min; Glucose 86 mg/dL (74-106); Potassium 3.7 mmol/L (3.5-5.1); Sodium Level 134 mmol/L (136-145)
[2023-01-17] MEDS: Folic Acid 1 MG Tablet PO (08:51)
[2023-01-17] MEDS: Thiamine Hydrochloride 100 MG Tablet PO (08:51)
[2023-01-17] MEDS: Enoxaparin 40 MG/0.4 ML Syringe SC (08:51)
[2023-01-17] MEDS: 0.9% Saline Lock 10 ML Syringe IV (08:52)
[2023-01-17] MEDS: Pantoprazole Sodium 40 MG in 0.9% Normal Saline (100mL MB+) 100 ML 330 MG IV (09:03)
--- NOTE | 2023-01-17 10:30 | CASEMGMT ---
HANK SAUCEDO Assessment: Face to Face with pt for initial transition planning/care coordination assessment. RN SHERYL introduced self and role at [facility], pt voices understanding and consents to assessment. Pt is A&O x4 and answers all questions appropriately at this time. Pt sitting up in bed in no distress. Care providers, pharmacy, and demographics verified/updated. Admitting Dx: abd pain PCP:Deng Faustin SO[facility]ELER Specialists:Denies Preferred Pharmacy:[facility] Insurance: [place] Prescription Benefit: yes LNOK: Lynette Bowers, Living Arrangements: Pt lives with in a single story home with 3 steps and a rail to enter. Pt reports he is I in ADL's and denies concerns at home. Transportation: Pt drives self and denies concerns with transportation. DME:denies HHC/SNF: Denies hx of Pt states no concerns with going home at time of dc. Pt states that he does not smoke cigarettes and occasionally smokes marijuana. Pt drinks 6 beers per night and it varies on the weekend. Pt states he will think about if he would like resources for cessation. He states he did not realize it was a problem as it did not effect his work or his bills. Pt states no further concerns/needs. CM to follow. Advised pt to ask CM if any further question/concerns/needs arise, voices understanding. Pt Goal: Home Plan: Home
[2023-01-17 15:19] LABS: Bacteria 0 SEEN /hpf (None Seen); Red Blood Cells-Urine 0 SEEN /hpf (0-5); Squamous Epithelial Cells - UA 0 SEEN /hpf (0-5); White Blood Cells 0 SEEN /hpf (0-5)
[2023-01-17 15:29] LABS: Color, Urine Yellow (Yellow); Glucose, Dipstick Normal (Normal); Ketone-Dipstick 15 mg/dl (Negative); Leukocyte Esterase-Dipstick 25 /ul (Negative); Nitrite-Dipstick Negative (Negative); Occult Blood-Urine 25 /ul (Negative); Protein-Dipstick 30 mg/dl (Negative); Specific Gravity, Urine 1.025 (1.002-1.030); Urine Clarity Clear (Clear); Urine Urobilinogen 4 mg/dl (Normal)
[2023-01-17 15:46] LABS: Urine Bilirubin Dipstick 3 mg/dL (Negative)
[2023-01-17 15:49] LABS: Mucous, Urine 1+ /hpf (<or=2+)
[2023-01-18] VITALS (12 sets, daily range): BP systolic 158–197; BP diastolic 89–101; PULSE 90–110; RESP 16–18; TEMP 36.6–37.4; O2SAT 93–98
[2023-01-18] MEDS: 0.9% Normal Saline (1000mL) 1,000 ML 180 ML IV ×3 (00:17→11:14)
[2023-01-18] MEDS: Morphine 4 MG/ML Syringe IV ×4 (00:22→11:49)
[2023-01-18] MEDS: Enalaprilat 1.25 MG/ML Vial 2.5 MG IV ×3 (00:22→11:26)
[2023-01-18] MEDS: Enoxaparin 40 MG/0.4 ML Syringe SC (05:29)
[2023-01-18 06:47] LABS: Absolute Lymphocyte Count 0.36 X10^3/uL (0.83-4.51); Absolute Neutrophil Count 13.2 X10^3/uL (2.0-7.7); Basophil# 0.02 X10^3/uL; Basophil% 0.1 % (0-1); Eosinophil# 0.01 X10^3/uL; Eosinophils% 0.1 % (0-5); Hematocrit 40.9 % (40-54); Hemoglobin 12.3 g/dL (13.0-16.5); Lymphocyte # 0.36 X10^3/ul (0.83-4.51); Lymphocyte % 2.4 % (19-41); Mean Corp Hgb Conc 30.1 g/dL (32-36); Mean Corpuscular Hgb 23.8 pg (27.0-32.0); Mean Corpuscular Volume 79.1 fL (80-94); Mean Platelet Vol. 10.8 fl (6.2-12.0); Monocyte# 1.09 X10^3/uL; Monocyte% 7.4 % (0-10); NRBC Flagged by Analyzer 0 % (0-5); Neutrophil # 13.18 X10^3/uL (2.7-7.7); Neutrophil % 89.7 % (47-70); POSITIVE DIFFERENTIAL YES; Platelet Count 155 K/mm3 (150-450); RBC Distribution Width SD 53.4 fl (35.1-43.9); Red Blood Count 5.17 M/mm3 (4.6-6.2); White Blood Count 14.7 K/mm3 (4.4-11.0)
[2023-01-18 06:52] LABS: Differential Indicated SCAN CRITERIA MET
[2023-01-18 07:16] LABS: ALB/GLOB Ratio 0.6 RATIO (0.9-2.4); AST(SGOT) 23 U/L (15-37); Alanine Aminotransfer ALT/SGPT 24 U/L (16-61); Albumin, Serum 2.3 g/dL (3.2-5.0); Alkaline Phosphatase 59 U/L (45-117); Anion Gap 4 (5-15); BUN 15 mg/dL (7-18); BUN/Creat Ratio 20.9 RATIO (10-20); Calcium,Total 7.4 mg/dL (8.5-10.1); Chloride 101 mmol/L (98-107); Creatinine, Serum 0.72 mg/dL (0.70-1.30); EST Glomerular Filtration Rate 123 mL/min (>60); Est Glom Filt Rate - Afr Amer 149 mL/min (>60); Estimated Creatinine Clearance 126.74 ml/min; Globulin 3.6 g/dL (2.2-4.2); Glucose 79 mg/dL (74-106); Potassium 3.2 mmol/L (3.5-5.1); Protein, Total 5.9 g/dL (6.4-8.2); Sodium Level 131 mmol/L (136-145)
[2023-01-18 07:49] LABS: Differential Comment SCANNED
--- NOTE | 2023-01-18 08:30 | PCM.PN.HOSP ---
Reason for Visit Reason for Visit: Diagnoses Elevated white blood cell count, unspecified (01/16/23) Alcohol abuse, uncomplicated (01/16/23) Hypertensive urgency (01/16/23) Alcohol induced acute pancreatitis without necrosis or infection (01/16/23) Subjective Subjective Patient is still complaining of abdominal pain. Patient did not move bowel since last Monday. Patient is abdominal pain increased after taking Jell-O. Objective Data Objective Data Vital Signs: Vital Signs Temp Pulse Resp BP Pulse Ox O2 Del Method 99.2 F H 98 18 158/97 H 95 Room Air 01/18/23 07:38 01/18/23 08:19 01/18/23 08:19 01/18/23 07:38 01/18/23 08:19 01/18/23 08:19 Oxygen Delivery Method Room Air Weight: 224 lb 13.944 oz Body Mass Index (BMI) 32.2 Intake & Output: Intake and Output for Last 24 Hours 01/16/23 01/17/23 01/18/23 23:59 23:59 23:59 Intake Total 1210 / 1510 4680 / 5180 2806 / 2806 Balance 1210 / 1510 4680 / 5180 2806 / 2806 Lab / Micro Data 01/18/23 06:21 01/18/23 06:21 Labs: Laboratory Results - last 24 hr 01/17/23 15:10: Urine Color Yellow, Urine Clarity Clear, Urine pH 6.0, Ur Specific [place] 1.025, Urine Protein 30 H, Urine Glucose (UA) Normal, Urine Ketones 15 H, Urine Occult Blood 25 H, Urine Nitrite Negative, Urine Bilirubin 3 H, Urine Urobilinogen 4 H, Ur Leukocyte Esterase 25 H, Urine RBC 0 SEEN, Urine WBC 0 SEEN, Ur Squamous Epith Cells 0 SEEN, Urine Bacteria 0 SEEN, Urine Mucus 1+ 01/18/23 06:21: WBC 14.7 H, RBC 5.17, Hgb 12.3 L, Hct 40.9, MCV 79.1 L, MCH 23.8 L, MCHC 30.1 L, RDW Std Deviation 53.4 H, RDW Coeff of Octavio 19.0 H, Plt Count 155, MPV 10.8, Immature Gran % (Auto) 0.300, Neut % (Auto) 89.7 H, Lymph % (Auto) 2.4 L, [place] % (Auto) 7.4, Eos % (Auto) 0.1, Baso % (Auto) 0.1, Absolute Neuts (auto) 13.2 H, Absolute Lymphs (auto) 0.36 L, Nucleated RBC % 0, Differential Comment SCANNED, Sodium 131 L, Potassium 3.2 L, Chloride 101, Carbon Dioxide 26.0, Anion Gap 4 L, BUN 15, Creatinine 0.72, Estim Creat Clear Calc 126.74, Est GFR (MDRD) Af Amer 149, Est GFR (MDRD) Non-Af 123, BUN/Creatinine Ratio 20.9 H, Glucose 79, Calcium 7.4 L, Total Bilirubin 1.30 H, AST 23, ALT 24, Alkaline Phosphatase 59, Total Protein 5.9 L, Albumin 2.3 L, Globulin 3.6, Albumin/Globulin Ratio 0.6 L Physical Exam Narrative Physical exam General: Alert, Oriented x3, Cooperative HEENT: Atraumatic, PERRLA, EOMI, Normocephalic Oral: No Gingival or Mucosal Lesions/ Ulcerations Neck: Supple, No JVD, Negative Carotid Bruits Lungs: Air entry diminished in bilateral lung bases. No crepitation/rhonchi Cardiovascular: Regular rate, Regular Rhythm, Normal S1, Normal S2, No murmurs Abdomen: Soft, tenderness present over epigastric and umbilical region. Voluntary guarding but no peritoneal signs. Bowel sounds sluggish. No palpable mass. Not distended. : No renal angle tenderness. No suprapubic tenderness. Extremities: No edema, Capillary Refill Less than 3 Seconds Skin: No rashes, No breakdown Musculoskeletal: No Tenderness to Palpation of Joints or Extremities Neurological: Cranial nerves II-XII grossly intact, DTR 2+/4. No acute focal neurological deficit. Psych/Mental Status: Normal Affect, Appropriate. Assessment & Plan Assessment/Plan (1) Acute alcoholic pancreatitis: QUALIFIERS: Acute pancreatitis complication: no infection or necrosis Qualified Code(s): K85.20 - Alcohol induced acute pancreatitis without necrosis or infection PLAN: Patient was drinking 3 pints of hard liquor/vodka every day. He could not digest beer or wine. He did not small bowel for 5 days. MiraLAX, senna S and Dulcolax suppository started. Continue IVF, pain control. CT abd/pelvis showed pancreatic inflammation. Cholelithiasis w/o cholecystitis, no biliary duct dilation or choledocholithiasis. Avoid alcohol completely and quit. Advised pt to completely stop alcohol so another acute event occurs. Clinical Impression(s) from Imaging Studies Abdomen/Pelvis CT 01/16/23 16:57 IMPRESSION: Significant inflammation surrounding the pancreas. Correlate for acute pancreatitis. No fluid collection. Cholelithiasis without findings to suggest acute cholecystitis. No biliary ductal dilatation or choledocholithiasis seen. (2) Alcohol abuse: PLAN: Thiamine and folate PRN lorazepam Normally, pt drinks 5 beers/day (3) Leukocytosis: QUALIFIERS: Leukocytosis type: unspecified Qualified Code(s): D72.829 - Elevated white blood cell count, unspecified PLAN: Likely reactive from pancreatitis. Monitor (4) Hypertensive urgency: PLAN: 2/2 pancreatitis and untreated baseline HTN 213/117 on admission. Currently improved On scheduled enalprilat If tolerating PO, transition to oral meds. PLAN: Plan GERD-patient was placed on IV proton VTE prophylaxis: add enoxaparin. Charges/Coding Visit Charges Inpatient E&M: 58433 Subs Hosp L2
[2023-01-18] MEDS: Folic Acid 1 MG Tablet PO (08:45)
[2023-01-18] MEDS: Thiamine Hydrochloride 100 MG Tablet PO (08:45)
[2023-01-18] MEDS: Pantoprazole Sodium 40 MG in 0.9% Normal Saline (100mL MB+) 100 ML 330 MG IV (09:00)
[2023-01-18] MEDS: Ondansetron 4 MG/2 ML Vial IV ×2 (11:19→21:30)
[2023-01-18] MEDS: KCL 40mEq in 0.9% NS 40 MEQ/1,000 ML IV.SOLN 175 MEQ IV ×2 (16:43→22:19)
[2023-01-18] MEDS: Bisacodyl 10 MG Suppository RC (16:49)
[2023-01-18] MEDS: Polyethylene Glycol 3350 17 GM PACKET PO (16:50)
[2023-01-18] MEDS: HYDROmorphone 1 MG/ML Syringe IV ×2 (16:51→21:13)
[2023-01-18] MEDS: Senna/Docusate Sodium 1 Tablet 2 TABLET PO (16:51)
[2023-01-18] MEDS: hydrALAZINE 20 MG/ML Vial 10 MG IV (21:13)
[2023-01-18] MEDS: 0.9% Saline Lock 10 ML Syringe IV (21:18)
[2023-01-18] MEDS: Albuterol 2.5 MG/3 ML VIAL.NEB. INHALATION (22:48)
[2023-01-19] VITALS (8 sets, daily range): BP systolic 153–193; BP diastolic 91–101; PULSE 88–103; RESP 14–20; TEMP 37–37.6; O2SAT 95–98
[2023-01-19] MEDS: HYDROmorphone 1 MG/ML Syringe IV (01:16)
[2023-01-19] MEDS: traZODone 100 MG Tablet PO (01:16)
[2023-01-19] MEDS: Albuterol 2.5 MG/3 ML VIAL.NEB. INHALATION ×3 (01:40→21:09)
[2023-01-19] MEDS: Enoxaparin 40 MG/0.4 ML Syringe SC (05:43)
[2023-01-19] MEDS: HYDROmorphone 0.5 MG/0.5 ML SYRINGE IV (05:54)
[2023-01-19 07:36] LABS: Hematocrit 37.3 % (40-54); Hemoglobin 11.2 g/dL (13.0-16.5); Mean Corpuscular Hgb 23.5 pg (27.0-32.0); Mean Corpuscular Volume 78.4 fL (80-94); Mean Platelet Vol. 10.2 fl (6.2-12.0); Platelet Count 159 K/mm3 (150-450); RBC Distribution Width CV 18.3 % (11.6-14.6); RBC Distribution Width SD 52.3 fl (35.1-43.9); Red Blood Count 4.76 M/mm3 (4.6-6.2); White Blood Count 12.8 K/mm3 (4.4-11.0)
[2023-01-19 08:20] LABS: ALB/GLOB Ratio 0.6 RATIO (0.9-2.4); AST(SGOT) 29 U/L (15-37); Alanine Aminotransfer ALT/SGPT 26 U/L (16-61); Albumin, Serum 2.3 g/dL (3.2-5.0); Alkaline Phosphatase 73 U/L (45-117); Anion Gap 8 (5-15); BUN 8 mg/dL (7-18); BUN/Creat Ratio 14.6 RATIO (10-20); Calcium,Total 7.9 mg/dL (8.5-10.1); Chloride 102 mmol/L (98-107); Cholesterol 93 mg/dL (200); Creatinine, Serum 0.55 mg/dL (0.70-1.30); EST Glomerular Filtration Rate 168 mL/min (>60); Est Glom Filt Rate - Afr Amer 203 mL/min (>60); Estimated Creatinine Clearance 165.91 ml/min; Globulin 3.7 g/dL (2.2-4.2); Glucose 102 mg/dL (74-106); High Density Lipoprotein 16 mg/dL; Magnesium 1.8 mg/dL (1.6-2.6); Phosphorus 1.3 mg/dL (2.5-4.9); Potassium 3.2 mmol/L (3.5-5.1); Sodium Level 133 mmol/L (136-145); Triglycerides 102 mg/dL; Very Low Density Lipoprotein 20 mg/dL (5-40)
[2023-01-19] MEDS: Pantoprazole Sodium 40 MG in 0.9% Normal Saline (100mL MB+) 100 ML 330 MG IV (09:03)
[2023-01-19] MEDS: Folic Acid 1 MG Tablet PO (09:04)
[2023-01-19] MEDS: Thiamine Hydrochloride 100 MG Tablet PO (09:04)
--- NOTE | 2023-01-19 10:47 | PCM.PN.HOSP ---
Reason for Visit Reason for Visit: Diagnoses Elevated white blood cell count, unspecified (01/16/23) Alcohol abuse, uncomplicated (01/16/23) Hypertensive urgency (01/16/23) Alcohol induced acute pancreatitis without necrosis or infection (01/16/23) Objective Data Objective Data Vital Signs: Vital Signs Temp Pulse Resp BP Pulse Ox O2 Del Method 98.6 F 96 18 162/91 H 95 Room Air 01/19/23 09:58 01/19/23 09:58 01/19/23 09:58 01/19/23 09:58 01/19/23 09:58 01/19/23 09:58 Oxygen Delivery Method Room Air Weight: 224 lb 13.944 oz Body Mass Index (BMI) 32.2 Intake & Output: Intake and Output for Last 24 Hours 01/17/23 01/18/23 01/19/23 23:59 23:59 23:59 Intake Total 4680 / 5180 6616 / 7016 1510 / 1510 Output Total 850 / 850 Balance 4680 / 5180 5766 / 6166 1510 / 1510 Lab / Micro Data 01/19/23 07:10 01/19/23 07:10 Labs: Laboratory Results - last 24 hr 01/19/23 07:10: WBC 12.8 H, RBC 4.76, Hgb 11.2 L, Hct 37.3 L, MCV 78.4 L, MCH 23.5 L, MCHC 30.0 L, RDW Std Deviation 52.3 H, RDW Coeff of Octavio 18.3 H, Plt Count 159, MPV 10.2, Sodium 133 L, Potassium 3.2 L, Chloride 102, Carbon Dioxide 23.0, Anion Gap 8, BUN 8, Creatinine 0.55 L, Estim Creat Clear Calc 165.91, Est GFR (MDRD) Af Amer 203, Est GFR (MDRD) Non-Af 168, BUN/Creatinine Ratio 14.6, Glucose 102, Calcium 7.9 L, Phosphorus 1.3 L, Magnesium 1.8, Total Bilirubin 0.90, AST 29, ALT 26, Alkaline Phosphatase 73, Total Protein 6.0 L, Albumin 2.3 L, Globulin 3.7, Albumin/Globulin Ratio 0.6 L, Triglycerides 102, Cholesterol 93, LDL Cholesterol 57, VLDL Cholesterol 20, HDL Cholesterol 16 L Physical Exam Narrative Patient states his pain is better for 4-5/10 intensity intermittent now. It was continuous before. He feels he is getting better. He had bowel movement yesterday.He said he oral pain medication and wanted to discontinue Dilaudid. Physical exam General: Alert, Oriented x3, Cooperative HEENT: Atraumatic, PERRLA, EOMI, Normocephalic Oral: No Gingival or Mucosal Lesions/ Ulcerations Neck: Supple, No JVD, Negative Carotid Bruits Lungs: Air entry diminished in bilateral lung bases. No crepitation/rhonchi Cardiovascular: Regular rate, Regular Rhythm, Normal S1, Normal S2, No murmurs Abdomen: Soft, mild tenderness present over epigastric and umbilical region. Bowel sounds sluggish. No palpable mass. Not distended. : No renal angle tenderness. No suprapubic tenderness. Extremities: No edema, Capillary Refill Less than 3 Seconds Skin: No rashes, No breakdown Musculoskeletal: No Tenderness to Palpation of Joints or Extremities Neurological: Cranial nerves II-XII grossly intact, DTR 2+/4. No acute focal neurological deficit. Psych/Mental Status: Normal Affect, Appropriate. Const alert, oriented x3, no apparent distress and healthy appearing General Appearance: cooperative, well kempt and well developed Orientation / Consciousness: awake, oriented to person, oriented to place and oriented to time HEENT normocephalic, head/scalp atraumatic, hearing grossly normal bilaterally and moist oral mucous membranes Eyes PERRL, EOMs intact bilaterally and conjunctivae normal Neck supple, no JVD, thyroid normal and no carotid bruits General: trachea midline Resp normal respiratory effort, no retractions, no use of accessory muscles and clear to auscultation bilaterally Auscultation: Negative for rales, rhonchi or wheezes Cardio regular rate, regular rhythm, S1 normal heart sound, S2 normal heart sound, no murmurs, no rub and no gallops GI normal to inspection, nondistended, normoactive bowel sounds, soft to palpation, non-tender and non-distended GI Narrative: Patient's abdomen is diffusely tender, no rebound abdominal tenderness was noted, bowel sounds are present in all 4 quadrant Extremity no clubbing, cyanosis or edema Skin no rashes or lesions noted General Skin Exam: no breakdown Neuro oriented x3, CN's II-XII intact bilaterally, moves all extremities, no focal motor deficits and no sensory deficits noted Sensorium / Orientation: awake, alert, oriented to person, oriented to place and oriented to time Speech: speech normal Psych affect normal Assessment & Plan Assessment/Plan (1) Acute alcoholic pancreatitis: QUALIFIERS: Acute pancreatitis complication: no infection or necrosis Qualified Code(s): K85.20 - Alcohol induced acute pancreatitis without necrosis or infection PLAN: Patient was drinking 3 pints of hard liquor/vodka every day. He could not digest beer or wine. He did not small bowel for 5 days. MiraLAX, senna S and Dulcolax suppository started. Continue IVF, pain control. CT abd/pelvis showed pancreatic inflammation. Cholelithiasis w/o cholecystitis, no biliary duct dilation or choledocholithiasis. Avoid alcohol completely and quit. Advised pt to completely stop alcohol so another acute event occurs. 01/19: Clinically he is getting better. IV fluid ordered. Pain medication IV Dilaudid changed to oral oxycodone. Labs reviewed. Phosphorus low 1.3. Magnesium 1.8. Hypokalemia 3.2. Sodium 133. Continue replacement of phosphorus and potassium. Clinical Impression(s) from Imaging Studies Abdomen/Pelvis CT 01/16/23 16:57 IMPRESSION: Significant inflammation surrounding the pancreas. Correlate for acute pancreatitis. No fluid collection. Cholelithiasis without findings to suggest acute cholecystitis. No biliary ductal dilatation or choledocholithiasis seen. (2) Alcohol abuse: PLAN: Thiamine and folate PRN lorazepam Normally, pt drinks 5 beers/day (3) Leukocytosis: QUALIFIERS: Leukocytosis type: unspecified Qualified Code(s): D72.829 - Elevated white blood cell count, unspecified PLAN: Likely reactive from pancreatitis. Monitor (4) Hypertensive urgency: PLAN: 2/2 pancreatitis and untreated baseline HTN 213/117 on admission. Currently improved On scheduled enalprilat If tolerating PO, transition to oral meds. PLAN: Plan GERD-patient was placed on IV proton VTE prophylaxis: add enoxaparin. Charges/Coding Visit Charges Inpatient E&M: 13691 Subs Hosp L2
[2023-01-19] MEDS: Magnesium Chloride 64 MG Delay Rel.Tablet 128 MG PO ×2 (11:33→20:41)
[2023-01-19] MEDS: KCL 40mEq in 0.9% NS 40 MEQ/1,000 ML IV.SOLN 150 MEQ IV ×2 (11:33→17:51)
[2023-01-19] MEDS: oxyCODONE 5 MG Tablet PO ×2 (14:51→20:41)
[2023-01-19] MEDS: Na Biphos/Potassium Phosphate PACKET 1 PACKET PO ×2 (14:52→20:41)
[2023-01-19] MEDS: Enalaprilat 1.25 MG/ML Vial 2.5 MG IV (20:40)
[2023-01-20] VITALS (7 sets, daily range): BP systolic 149–165; BP diastolic 83–100; PULSE 89–101; RESP 16–20; TEMP 36.9–37.3; O2SAT 95–98
[2023-01-20] MEDS: oxyCODONE 5 MG Tablet PO (02:40)
[2023-01-20] MEDS: traZODone 100 MG Tablet PO (02:42)
[2023-01-20] MEDS: Na Biphos/Potassium Phosphate PACKET 1 PACKET PO (06:38)
[2023-01-20] MEDS: Enoxaparin 40 MG/0.4 ML Syringe SC (06:38)
[2023-01-20] MEDS: Acetaminophen 325 MG Tablet 650 MG PO (06:39)
[2023-01-20 07:13] LABS: Hematocrit 36.5 % (40-54); Mean Corp Hgb Conc 30.1 g/dL (32-36); Mean Corpuscular Hgb 23.8 pg (27.0-32.0); Mean Corpuscular Volume 78.8 fL (80-94); Mean Platelet Vol. 10.6 fl (6.2-12.0); Platelet Count 164 K/mm3 (150-450); RBC Distribution Width CV 18.2 % (11.6-14.6); RBC Distribution Width SD 52.3 fl (35.1-43.9); Red Blood Count 4.63 M/mm3 (4.6-6.2)
--- NOTE | 2023-01-20 07:26 | DCINST_ITS ---
Discharge Instructions Diet Discharge Diet: Light diet - advance as tolerated (Transitional diet, low- fat/oily for 5 days. No fried foods.), [place] diet and Low fat / Low cholesterol Activity Discharge Activity: Return to Normal Activity Weight Bearing Status: Weight bearing as tolerated Dressing / Incision Call your doctor if you observe: Fever of 101 or Higher, Coldness, Increased Pain, Numbness or Tingling, Change in Color, Inability to urinate, Inability to have a bowel movement, Shortness of breath, Dizziness, Fainting spells, Swelling in the ankles, Chest pain, Prolonged hiccupping, Increased palpitations (irregular heartbeat) and Calf discomfort Follow Up Care When: IN 2 WEEKS Test Results: Test results from this visit will be discussed in further detail at your follow- up appointment, if applicable. 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 Attending Provider: Osei Gonzales Primary Care Provider: Edmar Faustin NP Consulting Providers: Kristian Howard; Edy Diaz Discharge Orders/Prescriptions Prescriptions: New thiamine HCl (vitamin B1) [Vitamin B-1] 100 mg Tablet 100 mg PO BREAKFAST Qty: 30 3RF folic acid 1 mg Tablet 1 mg PO BREAKFAST Qty: 30 3RF oxycodone 5 mg tablet 2.5 mg PO Q6H PRN (Reason: pain (scale score 4-10) 3 Days Qty: 7 0RF Rx Instructions: Oxycodone 2.5 mg for 4-6/10 5 mg for 7?10/10 pain intensity lisinopril 10 mg tablet 10 mg PO DAILY Qty: 30 2RF Continued Omeprazole [Prilosec] 40 MG capsule 20 mg PO DAILY Referrals / Follow Up: Zachary Duke DO [Med Staff - Active Staff] - Within 1 Month (F/U Alcoholic pancreatitis) Edmar Faustin NP, ENDORSEMENT CLERK-C [Primary Care Provider] - Within 2 Weeks Disposition Disposition (needs filled in before D/C Order can be placed): Home, Self Care
[2023-01-20] MEDS: Albuterol 2.5 MG/3 ML VIAL.NEB. INHALATION ×2 (07:31→10:31)
[2023-01-20 07:34] LABS: ALB/GLOB Ratio 0.6 RATIO (0.9-2.4); AST(SGOT) 50 U/L (15-37); Alanine Aminotransfer ALT/SGPT 37 U/L (16-61); Albumin, Serum 2.2 g/dL (3.2-5.0); Alkaline Phosphatase 102 U/L (45-117); Anion Gap 7 (5-15); BUN 5 mg/dL (7-18); Calcium,Total 8.2 mg/dL (8.5-10.1); Chloride 104 mmol/L (98-107); EST Glomerular Filtration Rate 187 mL/min (>60); Est Glom Filt Rate - Afr Amer 227 mL/min (>60); Globulin 3.8 g/dL (2.2-4.2); Glucose 74 mg/dL (74-106); Potassium 3.2 mmol/L (3.5-5.1); Sodium Level 135 mmol/L (136-145)
[2023-01-20] MEDS: Folic Acid 1 MG Tablet PO (08:35)
[2023-01-20] MEDS: Thiamine Hydrochloride 100 MG Tablet PO (08:35)
[2023-01-20] MEDS: Magnesium Chloride 64 MG Delay Rel.Tablet 128 MG PO (08:36)
[2023-01-20] MEDS: 0.9% Normal Saline (250mL Bag) 250 ML 15 ML IV (09:46)
[2023-01-20] MEDS: Pantoprazole Sodium 40 MG in 0.9% Normal Saline (100mL MB+) 100 ML 330 MG IV (09:48)
[2023-01-20] MEDS: Potassium Phosphate 21 MM in 0.9% Normal Saline (250mL Bag) 250 ML 84 MM IV (10:14)
--- NOTE | 2023-01-20 11:23 | DS.PCM_ITS ---
Providers Date of Admission: 01/16/23 Date of Discharge: 01/20/23 Primary Care Physician: Emdar Faustin, ROPE MAKING MACHINE OPERATOR-C Reason For Visit: ABD PAIN Diagnosis Discharge Diagnosis (1) Acute alcoholic pancreatitis: Status: Acute Code(s): K85.20 - Alcohol induced acute pancreatitis without necrosis or infection Qualifiers: Acute pancreatitis complication: no infection or necrosis Qualified Code(s): K85.20 - Alcohol induced acute pancreatitis without necrosis or infection Plan: Patient was drinking 3 pints of hard liquor/vodka every day. He could not digest beer or wine. He did not small bowel for 5 days. MiraLAX, senna S and Dulcolax suppository started. Continue IVF, pain control. CT abd/pelvis showed pancreatic inflammation. Cholelithiasis w/o cholecystitis, no biliary duct dilation or choledocholithiasis. Avoid alcohol completely and quit. Advised pt to completely stop alcohol so another acute event occurs. 01/19: Clinically he is getting better. IV fluid ordered. Pain medication IV Dilaudid changed to oral oxycodone. Labs reviewed. Phosphorus low 1.3. Magnesium 1.8. Hypokalemia 3.2. Sodium 133. Continue replacement of phosphorus and potassium. 01/20: Phosphorus level normal 1.3. Magnesium normal. IV potassium phosphate ordered. Patient can be discharged home after completion of IV potassium phosphate. Follow-up in GI clinic with Dr. Duke in 1 month. Follow-up PCP in 1 to 2 weeks. Prescription for oxycodone 2.5 to 5 mg every 4 hourly as needed for moderate to severe pain respectively given. Prescriptions also given for folic acid thiamine. Patient has omeprazole at home. Advised quitting alcohol altogether. Patient had similar bout of pancreatitis about 10 years ago. Clinical Impression(s) from Imaging Studies Abdomen/Pelvis CT 01/16/23 16:57 IMPRESSION: Significant inflammation surrounding the pancreas. Correlate for acute pancreatitis. No fluid collection. Cholelithiasis without findings to suggest acute cholecystitis. No biliary ductal dilatation or choledocholithiasis seen. (2) Alcohol abuse: Status: Acute Code(s): F10.10 - Alcohol abuse, uncomplicated Plan: Thiamine and folate PRN lorazepam Normally, pt drinks 5 beers/day (3) Leukocytosis: Status: Acute Code(s): D72.829 - Elevated white blood cell count, unspecified Qualifiers: Leukocytosis type: unspecified Qualified Code(s): D72.829 - Elevated w bernadette blood cell count, unspecified Plan: Likely reactive from pancreatitis. Monitor (4) Hypertensive urgency: Status: Acute Code(s): I16.0 - Hypertensive urgency Plan: 2/2 pancreatitis and untreated baseline HTN 213/117 on admission. Currently improved On scheduled enalprilat If tolerating PO, transition to oral meds. 01/20: Patient blood pressure is better systolic 140s. Prescription for lisinopril 10 mg daily given sent to patient's pharmacy. This might need up titration and/or putting second antihypertensive agent. He also needs ambulatory or home BP monitoring. Please follow-up PCP. Plan GERD-patient was placed on IV proton VTE prophylaxis: add enoxaparin. Medications at Discharge Home Medications Omeprazole [Prilosec] 20 mg PO DAILY 06/11/16 folic acid 1 mg tablet 1 mg PO BREAKFAST #30 tabs 01/20/23 lisinopril 10 mg tablet 10 mg PO DAILY #30 tabs 01/20/23 oxycodone 5 mg tablet 2.5 mg (1/2 x 5 mg) PO Q6H PRN pain (scale score 4-10 3 days #7 tabs 01/20/23 thiamine HCl (vitamin B1) 100 mg tablet (Vitamin B-1) 100 mg PO BREAKFAST #30 tabs 01/20/23 Physical Exam Narrative The patient does not have abdominal pain. He is walking around the nursing station pain-free. Ready to go home. IV potassium phosphate prescribed for hypophosphatemia. Physical exam General: Alert, Oriented x3, Cooperative HEENT: Atraumatic, PERRLA, EOMI, Normocephalic Oral: No Gingival or Mucosal Lesions/ Ulcerations Neck: Supple, No JVD, Negative Carotid Bruits Lungs: Air entry diminished in bilateral lung bases. No crepitation/rhonchi Cardiovascular: Regular rate, Regular Rhythm, Normal S1, Normal S2, No murmurs Abdomen: Soft, no tenderness. Bowel sounds good. No hepatosplenomegaly. No palpable mass. Not distended. : No renal angle tenderness. No suprapubic tenderness. Extremities: No edema, Capillary Refill Less than 3 Seconds Skin: No rashes, No breakdown Musculoskeletal: No Tenderness to Palpation of Joints or Extremities Neurological: Cranial nerves II-XII grossly intact, DTR 2+/4. No acute focal neurological deficit. Psych/Mental Status: Normal Affect, Appropriate. Weight / BMI Weight Weight: 224 lb 13.944 oz Body Mass Index (BMI) 32.2 ABG / Lab / Microbiology Data 01/20/23 06:10 01/20/23 06:10 Laboratory: Laboratory Results - last 24 hr 01/19/23 07:10: WBC 12.8 H, RBC 4.76, Hgb 11.2 L, Hct 37.3 L, MCV 78.4 L, MCH 23.5 L, MCHC 30.0 L, RDW Std Deviation 52.3 H, RDW Coeff of Octavio 18.3 H, Plt Count 159, MPV 10.2, Sodium 133 L, Potassium 3.2 L, Chloride 102, Carbon Dioxide 23.0, Anion Gap 8, BUN 8, Creatinine 0.55 L, Estim Creat Clear Calc 165.91, Est GFR (MDRD) Af Amer 203, Est GFR (MDRD) Non-Af 168, BUN/Creatinine Ratio 14.6, Glucose 102, Calcium 7.9 L, Phosphorus 1.3 L, Magnesium 1.8, Total Bilirubin 0.90, AST 29, ALT 26, Alkaline Phosphatase 73, Total Protein 6.0 L, Albumin 2.3 L, Globulin 3.7, Albumin/Globulin Ratio 0.6 L, Triglycerides 102, Cholesterol 93, LDL Cholesterol 57, VLDL Cholesterol 20, HDL Cholesterol 16 L 01/20/23 06:10: WBC 11.0, RBC 4.63, Hgb 11.0 L, Hct 36.5 L, MCV 78.8 L, MCH 23.8 L, MCHC 30.1 L, RDW Std Deviation 52.3 H, RDW Coeff of Octavio 18.2 H, Plt Count 164, MPV 10.6 Meaningful Use Info Meaningful Use Diagnoses (Choose all that apply): None applicable 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 Attending Provider: Osei Gonzales Primary Care Provider: Edmar Faustin ROPE MAKING MACHINE OPERATOR Consulting Providers: Kristian Howard; Edy Diaz Discharge Orders/Prescriptions Prescriptions: New thiamine HCl (vitamin B1) [Vitamin B-1] 100 mg Tablet 100 mg PO BREAKFAST Qty: 30 3RF folic acid 1 mg Tablet 1 mg PO BREAKFAST Qty: 30 3RF oxycodone 5 mg tablet 2.5 mg PO Q6H PRN (Reason: pain (scale score 4-10) 3 Days Qty: 7 0RF Rx Instructions: Oxycodone 2.5 mg for 4-6/10 5 mg for 7?10/10 pain intensity lisinopril 10 mg tablet 10 mg PO DAILY Qty: 30 2RF Continued Omeprazole [Prilosec] 40 MG capsule 20 mg PO DAILY Referrals / Follow Up: Zachary Duke DO [Med Staff - Active Staff] - Within 1 Month (F/U Alcoholic pancreatitis) Edmar Faustin ROPE MAKING MACHINE OPERATOR, ROPE MAKING MACHINE OPERATOR-C [Primary Care Provider] - Within 2 Weeks Disposition Disposition (needs filled in before D/C Order can be placed): Home, Self Care Charges/Coding Visit Charges Inpatient E&M: 85659 Disch Hosp >30min
--- NOTE | 2023-01-20 11:48 | CASEMGMT ---
HANK CM into pt room, pt was ambulating the halls. Pt denies any homegoing needs at this time.
--- NOTE | 2023-01-20 13:42 | PHA.DC_ITS ---
Pharmacy [facility] has performed discharge medication reconciliation and counseling for this patient. The patient's discharge medication list was reviewed for discrepancies and discrepancies were resolved. The patient was counseled on the following discharge medications and changes in medications for homegoing were reviewed. The Reason for Use, instructions for use, and potential side effects were reviewed for all new medications. The patient's questions regarding all of their medications were answered. 1. Oxycodone 2.5-5 mg PO Q6H PRN pain 2. Lisinopril 10 mg PO daily 3. folic acid 1 mg PO daily 4. thiamine 100 mg PO daily The patient was able to verbally demonstrate an understanding of their discharge medications. Medications at Discharge Home Medications Omeprazole [Prilosec] 20 mg PO DAILY 06/11/16 folic acid 1 mg tablet 1 mg PO BREAKFAST #30 tabs 01/20/23 lisinopril 10 mg tablet 10 mg PO DAILY #30 tabs 01/20/23 oxycodone 5 mg tablet 2.5 mg (1/2 x 5 mg) PO Q6H PRN pain (scale score 4-10 3 days #7 tabs 01/20/23 thiamine HCl (vitamin B1) 100 mg tablet (Vitamin B-1) 100 mg PO BREAKFAST #30 tabs 01/20/23
== END 2023-01-20 14:19 | disposition home or self-care (01) | DRG 440 ==
LOC: ED 17:45 → MS3 19:20
PROVIDERS: Nurse Practitioner; Admitting Provider Internal Medicine; Emergency Provider Emergency Medicine; PCP Nurse Practitioner Family; Visit Provider Internal Medicine
DX: K85.20 Alcohol induced acute pancreatitis without necrosis or infection (principal); E87.6 Hypokalemia; F10.10 Alcohol abuse, uncomplicated; I10 Essential (primary) hypertension; F12.90 Cannabis use, unspecified, uncomplicated; K21.9 Gastro-esophageal reflux disease without esophagitis; K80.20 Calculus of gallbladder without cholecystitis without obstruction; I16.0 Hypertensive urgency; Y90.9 Presence of alcohol in blood, level not specified
CPT/HCPCS: 36415; 74177; 80048; 80053; 80061; 81001; 83690; 83735; 84100; 85025; 85027; 94640; 99283; J7030; J7050; Q9967; A4216; J2405

== ENCOUNTER 2023-01-20 21:27 | Emergency (ER) | payer BC, SELFPAY ==
[2023-01-20 21:28] VITALS: BP 201/117; PULSE 114; RESP 20; TEMP 35.8; O2SAT 100
--- NOTE | 2023-01-20 22:27 | US_ITS ---
INDICATION: Bilateral lower extremity swelling EXAMINATION: US Venous Duplex LE Bilat Complete BILATERAL TECHNIQUE: Estes scale, pulse wave, and color flow Doppler imaging was performed of the lower extremity venous system. The bilateral greater saphenous, common femoral, femoral, popliteal, posterior tibial and peroneal veins were interrogated. COMPARISON: None. FINDINGS: There is normal compression, augmentation, and signal throughout the visualized deep lower extremity veins. No mass or fluid collection demonstrated. US/Venous Duplex Imag/Hola Extrem IMPRESSION: No sonographic evidence of right or left lower extremity deep venous thrombosis. Electronically Signed: Kristian Xiong MD at 23:52 EDT ,
--- NOTE | 2023-01-20 22:36 | EX.ED.DYSGE1 ---
HPI History of Present Illness Chief Complaint: Edema Informant: patient Narrative Narrative: Patient is a 4-year-old male with past medical history of GERD alcohol abuse hypertension and pancreatitis. He was recently admitted to the hospital for 3 days secondary to acute pancreatitis. He states that he noticed today when he returned home that he had asymmetric swelling of his right leg compared to his left. He denies any chest pain or shortness of breath or previous history of DVT but he has concern for this based on his asymmetric swelling and therefore comes in for reevaluation PFSH PFS Home Medications Omeprazole [Prilosec] 20 mg PO DAILY 06/11/16 [History Last Taken 01/16/23] folic acid 1 mg tablet 1 mg PO BREAKFAST #30 tabs 01/20/23 [Rx Last Taken Unknown] lisinopril 10 mg tablet 10 mg PO DAILY #30 tabs 01/20/23 [Rx Last Taken Unknown] oxycodone 5 mg tablet 2.5 mg (1/2 x 5 mg) PO Q6H PRN pain (scale score 4-10 3 days #7 tabs 01/20/23 [Rx Last Taken Unknown] thiamine HCl (vitamin B1) 100 mg tablet (Vitamin B-1) 100 mg PO BREAKFAST #30 tabs 01/20/23 [Rx Last Taken Unknown] Allergy/AdvReac Type Severity Reaction Status Date / Time No Known Allergies Allergy Verified 01/16/23 15:22 Social History Smoking Status: Never smoker ROS ROS ED Constitutional Constitutional ED: Denies chills or fever(s) ENT ENT ED: Denies sore throat Cardiovascular Cardiovascular: Denies chest pain Respiratory/Chest Respiratory/Chest: Denies cough or dyspnea Gastrointestinal Gastrointestinal: Denies abdominal pain, diarrhea, nausea or vomiting Genitourinary Genitourinary ED: Denies dysuria Musculoskeletal Musculoskeletal: Reports other Details: Positive leg swelling ; Denies myalgias Integumentary Denies rash Neurologic Neurologic: Denies headache(s) Hematologic/Lymphatic Hematologic/Lymphatic: Denies easy bleeding or easy bruising EXAM Physical Exam Const Vital Signs: 01/20/23 21:28 01/20/23 21:54 Temperature 96.4 F L Temperature Source Temporal Pulse Rate 114 H Respiratory Rate 20 H Respiratory Effort Normal Non-Labored Blood Pressure 201/117 H Blood Pressure Mean 145 Pulse Ox 100 Oxygen Delivery Method Room Air Positive well nourished and well developed General Appearance ED: well developed; Negative for pallor HEENT HEENT Narrative: Normocephalic atraumatic Eyes PERRL and EOMs intact bilaterally General Eye ED: Negative for scleral icterus Neck supple and no JVD Resp normal respiratory effort and clear to auscultation bilaterally Cardio regular rate and regular rhythm Rate: other Other Details: Heart is regular rate and rhythm without murmurs rubs or gallops Radial and carotid pulses are equal and symmetric Extremity Extremity Narrative: Patient has trace pitting edema to the left lower leg and +1 pitting edema to the right. The right is roughly twice the size of the left. Negative Homans' sign bilaterally however. Neuro oriented x3, CN's II-XII intact bilaterally and no sensory deficits noted Sensorium / Orientation: alert Motor Exam: strength 5/5 throughout Psych mental status grossly normal Skin no rashes or lesions noted General Skin Exam: Negative for jaundice or pallor MDM MDM MDM Narrative Medical decision making narrative: Patient presented to the ER hypertensive but has a past medical history of this and is currently on lisinopril secondary to it. His main reason for coming in this evening is leg swelling. Differential diagnosis is for DVT that developed with his hospital stay versus third spacing versus congestive heart failure. Patient had blood work done in the hospital recently and today and therefore I felt no need for repeat labs. He did not have any chest pain or hypoxia or pleuritic chest pain so I felt no need for a CTA. A venous duplex was obtained of the bilateral lower legs and revealed no signs of clot. Lab work was reviewed and shows that his albumin level is low at 2.2 and as well as his protein is down. This would indicate that his leg swelling is secondary to third spacing. We discussed that he needs to increase his protein levels to correct this and at this time as he has no signs of endorgan damage or DVT he is otherwise safe for discharge History & Record Review Discussion w/independent historian: Patient Discharge Plan Triage Chief Complaint: Edema ED Provider: Efraín Cooper Dx/Rx/DC Orders Clinical Impression: Peripheral edema, Alcohol abuse, Hypertension Instructions: ED Peripheral Edema, Bilateral Prescriptions: No Action Omeprazole [Prilosec] 40 MG capsule 20 mg PO DAILY thiamine HCl (vitamin B1) [Vitamin B-1] 100 mg Tablet 100 mg PO BREAKFAST Qty: 30 3RF folic acid 1 mg Tablet 1 mg PO BREAKFAST Qty: 30 3RF oxycodone 5 mg tablet 2.5 mg PO Q6H PRN (Reason: pain (scale score 4-10) 3 Days Qty: 7 0RF Rx Instructions: Oxycodone 2.5 mg for 4-6/10 5 mg for 7?10/10 pain intensity lisinopril 10 mg tablet 10 mg PO DAILY Qty: 30 2RF Primary Care Provider: Edmar Faustin NP Referrals: Edmar Faustin NP, BRACELET AND BROOCH MAKER-C [Primary Care Provider] - Disposition Disposition: Home, Self Care
== END 2023-01-20 23:19 | disposition home or self-care (01) ==
PROVIDERS: Emergency Provider Emergency Medicine; PCP Nurse Practitioner Family; Visit Provider Emergency Medicine
DX: R60.9 Edema, unspecified (principal); F10.10 Alcohol abuse, uncomplicated; I10 Essential (primary) hypertension; K21.9 Gastro-esophageal reflux disease without esophagitis; Z79.899 Other long term (current) drug therapy; M79.89 Other specified soft tissue disorders
CPT/HCPCS: 93970; 99282

== ENCOUNTER 2023-01-21 12:41 | Observation (INO) | payer BC, SELFPAY ==
[2023-01-21] VITALS (9 sets, daily range): BP systolic 169–192; BP diastolic 85–152; PULSE 88–111; RESP 14–19; TEMP 36–37.8; O2SAT 95–100; BMI 34.4; BMI 34.0
--- NOTE | 2023-01-21 13:24 | CT_ITS ---
INDICATION: confusion EXAMINATION: CT BRAIN - CT Head or Brain W/O Contrast Injection TECHNIQUE: Multiple axial images were obtained of the head without intravenous contrast. A radiation dose optimization technique was used for this scan. IV Contrast dosage and agent: None. RADIATION DOSAGE (If Supplied By Facility): CTDIvol = ( 44.99 ) mGy, DLP = ( 812.98 ) mGycm COMPARISON: No relevant prior comparison study available FINDINGS: BRAIN PARENCHYMA: No intra- or extra-axial hemorrhage. No evidence of acute infarct. No intracranial mass or mass effect. There is preservation of the gonzalez/white matter interface. Posterior fossa structures are unremarkable. CSF SPACES: Appropriate for age. No hydrocephalus. Basal cisterns are patent. CALVARIUM, SKULL BASE, PARANASAL SINUSES AND MASTOID AIR CELLS: Clear. Indeterminate 8 mm left occipital scalp nodule. ORBITS: Both globes, extraocular muscles, optic nerves and retrobulbar fat appear unremarkable. CT/Brain/Head without Contrast IMPRESSION: No acute intracranial process. Electronically Signed: Erasto Foley MD at 14:56 EDT ,
--- NOTE | 2023-01-21 13:24 | EKG12_ITS ---
Test Reason : GENERAL ILLNESS Blood Pressure : / mmHG Vent. Rate : 092 BPM Atrial Rate : 092 BPM P-R Int : 154 ms QRS Dur : 136 ms QT Int : 378 ms P-R-T Axes : 083 081 062 degrees QTc Int : 467 ms Normal sinus rhythm Right bundle branch block Abnormal ECG Confirmed by TR DELA CRUZ, LIAM ([id number]), general expeditor STERLING SIFUENTES ([id number]) on 01/30/2023 6:58:31 AM Referred By: VICTORIA Confirmed By:NAN ARMANDO MD
--- NOTE | 2023-01-21 13:26 | EDS_ITS ---
HPI History of Present Illness Chief Complaint: General Illness Detail of Chief Complaint: Hallucinations Informant: patient Narrative Narrative: Patient presents to the emergency department with complaint of hallucinations that started 4 days ago initially. Patient seeing things that are not there and hearing things that are not there. He was recently admitted for pancreatitis related to alcohol. His last alcoholic drink was about a week ago. Patient denies headache or chest pain. He is known to be hypertensive and states that he has been taking his lisinopril. He was just discharged yesterday from the hospital and sent home with thiamine and folic acid. Patient denies fevers or chills or sweats. Denies chest pain or abdominal pain. PFSH PFSH Home Medications Omeprazole [Prilosec] 20 mg PO DAILY 06/11/16 [History Last Taken 01/16/23] folic acid 1 mg tablet 1 mg PO BREAKFAST #30 tabs 01/20/23 [Rx Last Taken Unknown] lisinopril 10 mg tablet 10 mg PO DAILY #30 tabs 01/20/23 [Rx Last Taken Unknown] oxycodone 5 mg tablet 2.5 mg (1/2 x 5 mg) PO Q6H PRN pain (scale score 4-10 3 days #7 tabs 01/20/23 [Rx Last Taken Unknown] thiamine HCl (vitamin B1) 100 mg tablet (Vitamin B-1) 100 mg PO BREAKFAST #30 tabs 01/20/23 [Rx Last Taken Unknown] Allergy/AdvReac Type Severity Reaction Status Date / Time No Known Allergies Allergy Verified 01/21/23 12:43 Social History Smoking Status: Never smoker ROS ROS ED Review of Systems ROS Unobtainable: other Constitutional Constitutional ED: Reports lethargy; Denies chills, fever(s), sweats or weight loss Eyes Eyes: Denies blurry vision, change in vision or diplopia ENT ENT ED: Denies rhinorrhea or sore throat Cardiovascular Cardiovascular: Denies chest pain, orthopnea or racing heartbeat Respiratory/Chest Respiratory/Chest: Denies cough, dyspnea, dyspnea on exertion, orthopnea or sputum Gastrointestinal Gastrointestinal: Denies abdominal pain, diarrhea, nausea or vomiting Genitourinary Genitourinary ED: Denies dysuria, hematuria or urinary frequency Musculoskeletal Musculoskeletal: Denies arthralgias, back pain, myalgias or neck pain Integumentary Denies abscess, Abrasions or rash Neurologic Neurologic: Reports other Details: Hallucinations ; Denies headache(s) or weakness Psychiatric Psychiatric: Denies anxiety, depression or suicidal thoughts Endocrine Endocrinology: Denies polydipsia, polyphagia or polyuria Hematologic/Lymphatic Hematologic/Lymphatic: Denies easy bleeding, easy bruising or lymphadenopathy Allergic/Immunologic Allergic/Immunologic ED: Denies mouth swelling, tongue swelling or urticaria EXAM Physical Exam Const Vital Signs: 01/21/23 12:43 01/21/23 13:58 01/21/23 15:27 Temperature 96.8 F L Temperature Source Temporal Pulse Rate 111 H 93 98 Respiratory Rate 18 14 15 Blood Pressure 192/152 H 169/85 H 176/139 H Blood Pressure Mean 165 113 151 Pulse Ox 98 98 97 Oxygen Delivery Method Room Air Room Air Room Air Positive well nourished and well developed General Appearance ED: well developed and NAD HEENT Reports TM's clear and moist mucous membranes normocephalic and atraumatic; Negative for trauma or tenderness Tympanic Membrane ED: Yes TM's clear Eyes PERRL and EOMs intact bilaterally General Eye ED: Negative for pale conjunctiva or scleral icterus Neck no lymphadenopathy, supple and no JVD General: Negative for tenderness Chest Wall inspection of chest normal and palpation of chest normal Chest: Negative for tenderness Resp normal respiratory effort and clear to auscultation bilaterally Effort and Inspection: Negative for respiratory distress or pain with movement Auscultation: Negative for rhonchi, wheezes or diminished lung sounds Cardio regular rate, regular rhythm, S1 normal heart sound, S2 normal heart sound and no murmurs Peripheral Pulses: pulses 2+ throughout GI normal to inspection, nondistended, normoactive bowel sounds, soft to palpation, non-tender, non-distended and no masses Back/Spine no CVA tenderness and no thoracic nor lumbar tenderness Extremity normal to inspection General Extremety ED: Negative for edema General Extremity: Negative for edema Neuro oriented x3, CN's II-XII intact bilaterally, no sensory deficits noted and gait normal Sensorium / Orientation: awake, alert, oriented to person, oriented to place and oriented to time Motor Exam: strength 5/5 throughout and strength abnormal Psych mental status grossly normal Skin no rashes or lesions noted and no wounds MDM MDM MDM Narrative Medical decision making narrative: Patient presents to the emergency department with hallucinations that are auditory and visual. Patient had recent admission for hypertensive urgency and pancreatitis related to alcohol abuse. In the differential would be Warnicke's encephalopathy versus hypertensive encephalopathy versus infectious etiology. IV line established. CBC with differential, 13.6 with platelets of 221 and hemoglobin 11.3. Chemistries under markable and lipase was minimally elevated at 95. LFTs were unremarkable. Urine this was normal CT scan of the brain without contrast was unremarkable. Patient was given hydralazine 10 mg IV and his blood pressure did improve. He continues to complain of feeling off balance. Case discussed with hospitalist to evaluate patient for admission. Lab Data Attestation: I reviewed the patient's lab results. Labs: Laboratory Results - last 24 hr 01/21/23 01/21/23 13:50 14:08 WBC 13.6 H RBC 4.70 Hgb 11.3 L Hct 36.1 L MCV 76.8 L MCH 24.0 L MCHC 31.3 L RDW Std Deviation 50.1 H RDW Coeff of Octavio 18.2 H Plt Count 221 MPV 10.3 Immature Gran % (Auto) 2.000 H Neut % (Auto) 77.1 H Lymph % (Auto) 4.1 L [place] % (Auto) 16.2 H Eos % (Auto) 0.2 Baso % (Auto) 0.4 Absolute Neuts (auto) 10.5 H Absolute Lymphs (auto) 0.56 L Nucleated RBC % 0 Differential Comment SCANNED Diff Path Review July Sodium 138 Potassium 3.2 L Chloride 104 Carbon Dioxide 26.0 Anion Gap 8 BUN 5 L Creatinine 0.46 L Estim Creat Clear Calc 198.37 Est GFR (MDRD) Af Amer 248 Est GFR (MDRD) Non-Af 205 BUN/Creatinine Ratio 10.9 Glucose 92 Calcium 8.7 Total Bilirubin 0.80 AST 36 ALT 39 Alkaline Phosphatase 115 Total Protein 6.4 Albumin 2.5 L Globulin 3.9 Albumin/Globulin Ratio 0.6 L Lipase 95 H Urine Color Yellow Urine Clarity Clear Urine pH 8.0 Ur Specific [place] 1.015 Urine Protein Negative Urine Glucose (UA) Normal Urine Ketones 50 H Urine Occult Blood Negative Urine Nitrite Negative Urine Bilirubin Negative Urine Urobilinogen 1 H Ur Leukocyte Esterase Negative Urine RBC 0 SEEN Urine WBC 0 SEEN Ur Squamous Epith Cells 0 SEEN Urine Bacteria 0 SEEN Urine Mucus 0 SEEN Radiography Diagnostic Testing: Clinical Impression(s) from Imaging Studies Brain CT 01/21/23 13:24 IMPRESSION: No acute intracranial process. Electronically Signed: Erasto Foley MD at 14:56 EDT , EKG Initial EKG: Attestation: I personally reviewed and interpreted this EKG as follows: Comments: Sinus rhythm with a rate of 92 bpm with right bundle branch block Discharge Plan Dx/Rx/DC Orders Clinical Impression: Hypertensive urgency, Alcohol withdrawal, Auditory hallucinations, Hallucinations, visual Disposition Disposition: Acute Care Hospital [facility]
[2023-01-21] MEDS: 0.9% Normal Saline (1000mL) 1,000 ML 150 ML IV ×2 (13:49→17:26)
[2023-01-21] MEDS: hydrALAZINE 20 MG/ML Vial 10 MG IV (13:49)
[2023-01-21 14:04] LABS: Absolute Lymphocyte Count 0.56 X10^3/uL (0.83-4.51); Absolute Neutrophil Count 10.5 X10^3/uL (2.0-7.7); Basophil# 0.05 X10^3/uL; Basophil% 0.4 % (0-1); Eosinophil# 0.03 X10^3/uL; Eosinophils% 0.2 % (0-5); Hematocrit 36.1 % (40-54); Hemoglobin 11.3 g/dL (13.0-16.5); Lymphocyte # 0.56 X10^3/ul (0.83-4.51); Lymphocyte % 4.1 % (19-41); Mean Corp Hgb Conc 31.3 g/dL (32-36); Mean Corpuscular Volume 76.8 fL (80-94); Mean Platelet Vol. 10.3 fl (6.2-12.0); Monocyte# 2.21 X10^3/uL; Monocyte% 16.2 % (0-10); NRBC Flagged by Analyzer 0 % (0-5); Neutrophil # 10.51 X10^3/uL (2.7-7.7); Neutrophil % 77.1 % (47-70); POSITIVE DIFFERENTIAL YES; Platelet Count 221 K/mm3 (150-450); RBC Distribution Width CV 18.2 % (11.6-14.6); RBC Distribution Width SD 50.1 fl (35.1-43.9); White Blood Count 13.6 K/mm3 (4.4-11.0)
[2023-01-21 14:06] LABS: Differential Indicated SCAN CRITERIA MET
[2023-01-21 14:19] LABS: Bacteria 0 SEEN /hpf (None Seen); Mucous, Urine 0 SEEN /hpf (<or=2+); Red Blood Cells-Urine 0 SEEN /hpf (0-5); Squamous Epithelial Cells - UA 0 SEEN /hpf (0-5); White Blood Cells 0 SEEN /hpf (0-5)
[2023-01-21 14:20] LABS: ALB/GLOB Ratio 0.6 RATIO (0.9-2.4); AST(SGOT) 36 U/L (15-37); Alanine Aminotransfer ALT/SGPT 39 U/L (16-61); Albumin, Serum 2.5 g/dL (3.2-5.0); Alkaline Phosphatase 115 U/L (45-117); Anion Gap 8 (5-15); BUN 5 mg/dL (7-18); BUN/Creat Ratio 10.9 RATIO (10-20); Calcium,Total 8.7 mg/dL (8.5-10.1); Chloride 104 mmol/L (98-107); Creatinine, Serum 0.46 mg/dL (0.70-1.30); EST Glomerular Filtration Rate 205 mL/min (>60); Est Glom Filt Rate - Afr Amer 248 mL/min (>60); Estimated Creatinine Clearance 198.37 ml/min; Globulin 3.9 g/dL (2.2-4.2); Glucose 92 mg/dL (74-106); Lipase 95 U/L (13-75); Potassium 3.2 mmol/L (3.5-5.1); Protein, Total 6.4 g/dL (6.4-8.2); Sodium Level 138 mmol/L (136-145)
[2023-01-21] MEDS: Thiamine Hydrochloride 100 MG in 0.9% Normal Saline (50mL Bag) 50 ML 200 MG IV (14:27)
[2023-01-21 14:30] LABS: Color, Urine Yellow (Yellow); Glucose, Dipstick Normal (Normal); Ketone-Dipstick 50 mg/dl (Negative); Leukocyte Esterase-Dipstick Negative /ul (Negative); Nitrite-Dipstick Negative (Negative); Occult Blood-Urine Negative /ul (Negative); Protein-Dipstick Negative (Negative); Specific Gravity, Urine 1.015 (1.002-1.030); Urine Bilirubin Dipstick Negative (Negative); Urine Clarity Clear (Clear); Urine Urobilinogen 1 mg/dl (Normal)
[2023-01-21 14:49] LABS: Differential Comment SCANNED
[2023-01-21] MEDS: Potassium Chloride Oral Tablet 20 MEQ 40 MEQ PO (15:17)
--- NOTE | 2023-01-21 15:42 | NURSING ---
MED SURG OBS GONZALEZ HALLUCINATIONS, DISEQUILIBRIUM, HYPERTENSIVE URGENCY
--- NOTE | 2023-01-21 15:55 | PCM.HP.STD ---
[facility] - General General Date of Admission: 01/21/23 Date of Service: 01/21/23 Chief Complaint: Hallucinations, feeling off balance HPI Narrative TASHIA JUAREZ, is a 52 M with history of asthma, heavy alcohol use last drink 1 week ago, pancreatitis discharged yesterday, hypertension presented to [facility] 01/21/2023 with auditory and visual hallucinations. He was admitted to [facility] 01/16/2023 through 01/20/2023 for alcoholic pancreatitis and was discharged home yesterday 01/20 in stable condition. Patient went to ED last night due to the right lower extremity swelling and had no DVT so he went home but was brought back today by family member for hallucinations. He endorses drinking history since he was roughly 15 and will drink 7-10 tall boys every day during the week and on weekends upwards of 15 or more and quit last Monday thinks he is trying to get healthy, reports he does not eat or drink well outside of his alcohol use. He said in hindsight he thinks he has probably been hallucinating since Monday or Monday and that he is just more aware of it now. He feels very off balance and like his whole body is tingling and he said he will feel like the doorknob or plants or moving or things are moving around him and he feels like he is hearing the radio play even when no one else can hear any sounds. Additionally had been paranoid about his neighbor last night reportedly. Hospitalist contacted for admission due to his hallucinations but also his feelings of being off balance and concerns that this is medical not psychiatric in nature, reportedly no history of this in the past. Patient has never tried to quit drinking before last Monday. Evaluated with family member at bedside and history as above. Patient was very tangential and difficult to direct in conversation but does endorse that hearing and seeing things since Monday or Monday but he is aware of this, does not report it is particularly distressing but he realizes it is happening and he does not know why. Also does report history of asthma and that he has been having some wheezing, denies tobacco use. PFSH Home Medications Omeprazole [Prilosec] 20 mg PO DAILY 06/11/16 [History Last Taken 01/16/23] folic acid 1 mg tablet 1 mg PO BREAKFAST #30 tabs 01/20/23 [Rx Last Taken Unknown] lisinopril 10 mg tablet 10 mg PO DAILY #30 tabs 01/20/23 [Rx Last Taken Unknown] oxycodone 5 mg tablet 2.5 mg (1/2 x 5 mg) PO Q6H PRN pain (scale score 4-10 3 days #7 tabs 01/20/23 [Rx Last Taken Unknown] thiamine HCl (vitamin B1) 100 mg tablet (Vitamin B-1) 100 mg PO BREAKFAST #30 tabs 01/20/23 [Rx Last Taken Unknown] Allergy/AdvReac Type Severity Reaction Status Date / Time No Known Allergies Allergy Verified 01/21/23 12:43 Social History Smoking Status: Never smoker ROS ROS Narrative General: Denies fever/chills HENT: Denies headache, denies stuffy nose, denies sore throat EYES: Has some visual hallucinations Resp: Denies cough, has some shortness of breath Cardiac: Denies chest pain GI: Denies abdominal pain, denies changes in bowel, denies nausea/vomiting : Denies changes in urination Extremity: Slight right lower extremity swelling MSK: Denies weakness Neuro: Feels his whole body is tingling Heme: Denies any bleeding or bruising Skin: Denies rashes Psychiatric: Endorses visual and auditory hallucinations that he is aware of Vital Signs Vital Signs Vital Signs: 01/21/23 12:43 01/21/23 13:58 01/21/23 15:27 Temperature 96.8 F L Temperature Source Temporal Pulse Rate 111 H 93 98 Respiratory Rate 18 14 15 Blood Pressure 192/152 H 169/85 H 176/139 H Blood Pressure Mean 165 113 151 Pulse Ox 98 98 97 Oxygen Delivery Method Room Air Room Air Room Air 01/21/23 15:42 Temperature Temperature Source Pulse Rate 104 H Respiratory Rate 19 H Blood Pressure 174/102 H Blood Pressure Mean 126 Pulse Ox 95 Oxygen Delivery Method Weight Weight: 108.862 kg Body Mass Index (BMI) 34.4 Physical Exam Narrative General: Alert, tangential, difficult to direct in conversation but does not appear acutely distressed HEENT: Atraumatic, normocephalic Eyes: Anicteric, normal conjunctiva, extraocular movements grossly intact Neck: Supple Respiratory: Wheezing diffusely, normal respiratory effort Cardiovascular: Mildly tachycardic, regular rhythm GI: Soft, nontender, nondistended Extremities: Trace right lower extremity edema Musculoskeletal: Moving all extremities Neuro: No overt focal neurological deficits, [id number] without significant difficulty and no significant tremor or asterixis in outstretched hands Skin: No rashes appreciated Psych: Attempts to be cooperative but very tangential and slightly pressured Results Lab / Micro Data 01/21/23 13:50 01/21/23 13:50 Labs: Laboratory Results - last 24 hr 01/21/23 13:50: WBC 13.6 H, RBC 4.70, Hgb 11.3 L, Hct 36.1 L, MCV 76.8 L, MCH 24.0 L, MCHC 31.3 L, RDW Std Deviation 50.1 H, RDW Coeff of Octavio 18.2 H, Plt Count 221, MPV 10.3, Immature Gran % (Auto) 2.000 H, Neut % (Auto) 77.1 H, Lymph % (Auto) 4.1 L, [place] % (Auto) 16.2 H, Eos % (Auto) 0.2, Baso % (Auto) 0.4, Absolute Neuts (auto) 10.5 H, Absolute Lymphs (auto) 0.56 L, Nucleated RBC % 0, Differential Comment SCANNED, Diff Path Review July, Sodium 138, Potassium 3.2 L, Chloride 104, Carbon Dioxide 26.0, Anion Gap 8, BUN 5 L, Creatinine 0.46 L, Estim Creat Clear Calc 198.37, Est GFR (MDRD) Af Amer 248, Est GFR (MDRD) Non-Af 205, BUN/Creatinine Ratio 10.9, Glucose 92, Calcium 8.7, Total Bilirubin 0.80, AST 36, ALT 39, Alkaline Phosphatase 115, Total Protein 6.4, Albumin 2.5 L, Globulin 3.9, Albumin/Globulin Ratio 0.6 L, Lipase 95 H 01/21/23 14:08: Urine Color Yellow, Urine Clarity Clear, Urine pH 8.0, Ur Specific [place] 1.015, Urine Protein Negative, Urine Glucose (UA) Normal, Urine Ketones 50 H, Urine Occult Blood Negative, Urine Nitrite Negative, Urine Bilirubin Negative, Urine Urobilinogen 1 H, Ur Leukocyte Esterase Negative, Urine RBC 0 SEEN, Urine WBC 0 SEEN, Ur Squamous Epith Cells 0 SEEN, Urine Bacteria 0 SEEN, Urine Mucus 0 SEEN Radiology Impression Brain CT 01/21/23 13:24 IMPRESSION: No acute intracranial process. Electronically Signed: Erasto Foley MD at 14:56 EDT , Assessment & Plan Assessment/Plan (1) Auditory hallucinations: (2) Hallucinations, visual: (3) Hypertensive urgency: (4) Alcohol abuse: PLAN: Plan #Auditory and visual hallucinations -Patient reports in hindsight these are probably been going on since Monday or Monday but he cannot say definitively -Quit drinking last Monday, query if this could be residual withdrawal though this timeline would be slightly unusual -Patient reports he was getting frequent pain medication while in the hospital and while he was given a prescription on discharge she has not taken any, may have a concomitant aspect of opioid withdrawal, will attempt to see how much she was receiving -Think that this is likely medically related and not a primary psychiatric problem -Check B12 and folate -IV thiamine -MRI w/ and w/out contrast -UDS and alcohol level -We will schedule nightly Risperdal #Hypertension -SBP mostly 160s and 170s in ED -Continue lisinopril -Treat underlying anxiety and cause -Parent medications available #Recent alcoholic pancreatitis -Patient denies any kind of abdominal complaints -Supportive care #hx asthma -Has some wheezing -duoneb x1 and prn alb after #DVT ppx: Lovenox subcu Janeth Cortez MD Time spent in the patient's overall evaluation,decision-making process, review of diagnostic data, adjustment of management, discussion with other providers, nursing nursing and ancillary staff involved in patient's care documentation, 56 minutes Charges/Coding Visit Charges Inpatient E&M: 32290 Init Hosp L2
[2023-01-21] MEDS: Ipratropium/Albuterol Sulfate 3 ML AMPUL.NEB INHALATION (17:20)
[2023-01-21 17:31] LABS: Alcohol, Blood (Medical)-Serum < 3.0 mg/dL
[2023-01-21 18:07] LABS: Amphetamine Urine VISTA NEGATIVE (<1000 ng/mL); Barbiturate Urine VISTA NEGATIVE (< 200 ng/mL); Benzodiazepine Urine VISTA NEGATIVE (< 200 ng/mL); Cocaine Urine VISTA NEGATIVE (< 300 ng/mL); Ecstacy Urine VISTA NEGATIVE (< 500 ng/mL); Methadone Urine VISTA NEGATIVE (< 300 ng/mL); PCP Urine VISTA NEGATIVE (< 25 ng/mL); THC Urine VISTA POSITIVE (< 50 ng/mL); Vista UDS pH Range 7
[2023-01-21] MEDS: RisperiDONE 0.5 MG Tablet PO (21:27)
[2023-01-21] MEDS: Lisinopril 10 MG Tablet PO (21:27)
[2023-01-21] MEDS: hydrALAZINE 20 MG/ML Vial 5 MG IV (21:27)
[2023-01-21] MEDS: MELATONIN 10 MG TABLET PO (21:27)
[2023-01-21] MEDS: Albuterol 2.5 MG/3 ML VIAL.NEB. INHALATION (22:19)
[2023-01-22] VITALS (11 sets, daily range): BP systolic 149–198; BP diastolic 83–115; PULSE 88–103; RESP 16–20; TEMP 36.9–37.2; O2SAT 97–100
[2023-01-22] MEDS: 0.9% Normal Saline (1000mL) 1,000 ML 150 ML IV ×2 (00:14→06:29)
[2023-01-22] MEDS: hydrALAZINE 20 MG/ML Vial 5 MG IV (04:02)
[2023-01-22] MEDS: Albuterol 2.5 MG/3 ML VIAL.NEB. INHALATION ×3 (04:18→19:24)
[2023-01-22] MEDS: hydrALAZINE 20 MG/ML Vial 10 MG IV ×2 (07:02→19:46)
--- NOTE | 2023-01-22 07:11 | PN.HOSP_ITS ---
Reason for Visit Reason for Visit: Diagnoses Alcohol abuse, uncomplicated (01/21/23) Hypertensive urgency (01/21/23) Auditory hallucinations (01/21/23) Visual hallucinations (01/21/23) Subjective Subjective States that he was having hallucinations while he was in the hospital last week. Was having visions of encounters with family members who are coming into his room and they clearly were not or people cleaning the back of the TV when they are not. Was persisting when he was at home though he states that it was worse on the third. Still persisted and had some last night the taking that his brother and [id number] were present in the room. He has not had this problem before. He did not let anyone know that he was having these hallucinations while he was in the hospital last week. Objective Data Objective Data Vital Signs: Vital Signs Temp Pulse Resp BP Pulse Ox O2 Del Method 37.2 C 96 16 190/101 H 98 Room Air 01/22/23 03:30 01/22/23 07:02 01/22/23 04:19 01/22/23 07:02 01/22/23 03:30 01/22/23 03:30 Oxygen Delivery Method Room Air Weight: 107.6 kg Body Mass Index (BMI) 34.0 Intake & Output: Intake and Output for Last 24 Hours 01/20/23 01/21/23 01/22/23 23:59 23:59 22:59 Intake Total 593.5 / 2593.5 4840 / 4840 Output Total 260 / 260 Balance 333.5 / 2333.5 4840 / 4840 Lab / Micro Data 01/22/23 05:30 01/22/23 05:30 Labs: Laboratory Results - last 24 hr 01/21/23 13:50: WBC 13.6 H, RBC 4.70, Hgb 11.3 L, Hct 36.1 L, MCV 76.8 L, MCH 24.0 L, MCHC 31.3 L, RDW Std Deviation 50.1 H, RDW Coeff of Octavio 18.2 H, Plt Count 221, MPV 10.3, Immature Gran % (Auto) 2.000 H, Neut % (Auto) 77.1 H, Lymph % (Auto) 4.1 L, [place] % (Auto) 16.2 H, Eos % (Auto) 0.2, Baso % (Auto) 0.4, Absolute Neuts (auto) 10.5 H, Absolute Lymphs (auto) 0.56 L, Nucleated RBC % 0, Differential Comment SCANNED, Diff Path Review July foll, Sodium 138, Potassium 3.2 L, Chloride 104, Carbon Dioxide 26.0, Anion Gap 8, BUN 5 L, Creatinine 0.46 L, Estim Creat Clear Calc 198.37, Est GFR (MDRD) Af Amer 248, Est GFR (MDRD) Non-Af 205, BUN/Creatinine Ratio 10.9, Glucose 92, Calcium 8.7, Total Bilirubin 0.80, AST 36, ALT 39, Alkaline Phosphatase 115, Total Protein 6.4, Albumin 2.5 L , Globulin 3.9, Albumin/Globulin Ratio 0.6 L, Lipase 95 H 01/21/23 14:08: Urine Color Yellow, Urine Clarity Clear, Urine pH 8.0, Ur Specific [place] 1.015, Urine Protein Negative, Urine Glucose (UA) Normal, Urine Ketones 50 H, Urine Occult Blood Negative, Urine Nitrite Negative, Urine Bilirubin Negative, Urine Urobilinogen 1 H, Ur Leukocyte Esterase Negative, Urine RBC 0 SEEN, Urine WBC 0 SEEN, Ur Squamous Epith Cells 0 SEEN, Urine Bacteria 0 SEEN, Urine Mucus 0 SEEN, Urine Opiates Screen NEGATIVE, Urine Methadone Screen NEGATIVE, Ur Barbiturates Screen NEGATIVE, Ur Phencyclidine Scrn NEGATIVE, Ur Amphetamines Screen NEGATIVE, MDMA (Ecstasy) Screen NEGATIVE, U Benzodiazepines Scrn NEGATIVE, Urine Cocaine Screen NEGATIVE, U Cannabinoids Screen POSITIVE H, Ur Drug Screen Comment 01/21/23 16:50: Folate 10.80, Ethyl Alcohol < 3.0 Radiography Diagnostic Testing: Radiology Impression Brain CT 01/21/23 13:24 IMPRESSION: No acute intracranial process. Electronically Signed: Erasto Foley MD at 14:56 EDT , Physical Exam Const alert and no apparent distress HEENT head/scalp atraumatic and moist oral mucous membranes Neuro Sensorium / Orientation: awake and alert Assessment & Plan Assessment/Plan (1) Hallucinations: PLAN: Auditory and visual Etiology is yet unclear. No known prior psychiatric history. Concern for protracted, perhaps delayed alcohol withdrawal, though last drink was 01/15. Last admission, patient endorsed to me that he only drank 5 beers/day. However, on this admission, it was explained by family/friends that he drank 7-10 tall boys during the week and and 15+ on the weekends. Alcohol level here was negative. Other possibilities could be cannabinoid-induced psychosis. Expectant monitoring. On risperidone I suspect that it is multifactorial due to alcohol withdrawal, poor sleep hygiene while in the hospital and also perhaps component of pain medications. Discussed with the patient and recommended staying here for another night stay and if he has no further hallucinations then we could probably safely assume it is probably a combination of those events and perhaps something else, however, if it is persisting, plan would be to do the MRI of the brain tomorrow. He is agreeable at this time. (2) Hypertensive urgency: PLAN: Despite 10mg of lisinopril. Unclear if pt even taking it. Will increase dose to 40, as he was still hypertensive during last admission. Monitor. (3) Alcohol abuse: PLAN: Thiamine and folate for now. If he develops worsening symptoms, consider phenobarbital, lorazepam, and even dexmedetomidine gtt. PLAN: Plan Chronic conditions: * Recent alcoholic pancreatitis: I suspect he has had chronic alcoholic pancreatitis. Advised complete cessation. * hx asthma-Has some wheezing-duoneb x1 and prn alb after DVT ppx: Lovenox subcu Greater than 55 minutes of which greater than 50% of time was counseling patient at bedside and listening to him and talk about the hallucinations and his hallucinations in great detail. Also discussing about the possibility of what the hallucinations could be the result of as mentioned above. Charges/Coding Visit Charges Inpatient E&M: 23336 Subs Hosp L3
[2023-01-22] MEDS: Folic Acid 1 MG Tablet PO (07:47)
[2023-01-22 08:00] LABS: Absolute Lymphocyte Count 0.83 X10^3/uL (0.83-4.51); Absolute Neutrophil Count 10.4 X10^3/uL (2.0-7.7); Basophil# 0.05 X10^3/uL; Basophil% 0.4 % (0-1); Eosinophil# 0.03 X10^3/uL; Eosinophils% 0.2 % (0-5); Hematocrit 37.9 % (40-54); Hemoglobin 11.6 g/dL (13.0-16.5); Lymphocyte # 0.83 X10^3/ul (0.83-4.51); Mean Corp Hgb Conc 30.6 g/dL (32-36); Mean Corpuscular Hgb 23.5 pg (27.0-32.0); Mean Corpuscular Volume 76.9 fL (80-94); Mean Platelet Vol. 10.6 fl (6.2-12.0); Monocyte# 2.04 X10^3/uL; Monocyte% 14.8 % (0-10); NRBC Flagged by Analyzer 0 % (0-5); Neutrophil # 10.37 X10^3/uL (2.7-7.7); Neutrophil % 75.4 % (47-70); POSITIVE DIFFERENTIAL YES; Platelet Count 248 K/mm3 (150-450); RBC Distribution Width CV 18.7 % (11.6-14.6); RBC Distribution Width SD 51.5 fl (35.1-43.9); Red Blood Count 4.93 M/mm3 (4.6-6.2); White Blood Count 13.8 K/mm3 (4.4-11.0)
[2023-01-22 08:03] LABS: Differential Indicated SCAN CRITERIA MET
[2023-01-22 08:20] LABS: Differential Comment SCANNED
[2023-01-22 09:37] LABS: Anion Gap 12 (5-15); BUN 4 mg/dL (7-18); BUN/Creat Ratio 8.9 RATIO (10-20); Calcium,Total 8.4 mg/dL (8.5-10.1); Chloride 101 mmol/L (98-107); Creatinine, Serum 0.45 mg/dL (0.70-1.30); EST Glomerular Filtration Rate 211 mL/min (>60); Est Glom Filt Rate - Afr Amer 255 mL/min (>60); Estimated Creatinine Clearance 202.78 ml/min; Glucose 84 mg/dL (74-106); Magnesium 1.7 mg/dL (1.6-2.6); Phosphorus 3.1 mg/dL (2.5-4.9); Potassium 2.7 mmol/L (3.5-5.1); Sodium Level 137 mmol/L (136-145)
[2023-01-22] MEDS: Thiamine Hydrochloride 200 MG in 0.9% Normal Saline (50mL Bag) 50 ML IV (09:38)
[2023-01-22] MEDS: Lisinopril 10 MG Tablet PO (09:38)
[2023-01-22] MEDS: Pantoprazole Sodium 20 MG Tablet PO (09:38)
[2023-01-22] MEDS: Enoxaparin 40 MG/0.4 ML Syringe SC (09:45)
[2023-01-22] MEDS: Acetaminophen 325 MG Tablet 650 MG PO ×2 (09:49→19:45)
[2023-01-22] MEDS: Potassium Chloride Oral Tablet 20 MEQ 40 MEQ PO ×2 (12:01→16:55)
[2023-01-22] MEDS: Ondansetron 4 MG/2 ML Vial IV (19:46)
[2023-01-22] MEDS: RisperiDONE 0.5 MG Tablet PO (22:00)
[2023-01-22] MEDS: MELATONIN 10 MG TABLET PO (22:00)
[2023-01-23 02:30] VITALS: BP 161/90; PULSE 90; RESP 18; TEMP 37; O2SAT 98
--- NOTE | 2023-01-23 07:11 | PN.HOSP_ITS ---
Reason for Visit Reason for Visit: Diagnoses Alcohol abuse, uncomplicated (01/21/23) Hypertensive urgency (01/21/23) Auditory hallucinations (01/21/23) Visual hallucinations (01/21/23) Hallucinations, unspecified (01/21/23) Subjective Subjective No further hallucinations. Slept well last night. Objective Data Objective Data Vital Signs: Vital Signs Temp Pulse Resp BP Pulse Ox O2 Del Method 37.0 C 90 18 161/90 H 98 Room Air 01/23/23 02:30 01/23/23 02:30 01/23/23 02:30 01/23/23 02:30 01/23/23 02:30 01/23/23 02:30 Oxygen Delivery Method Room Air Weight: 107.6 kg Body Mass Index (BMI) 34.0 Intake & Output: Intake and Output for Last 24 Hours 01/22/23 01/22/23 01/23/23 00:59 23:59 23:59 Intake Total 500 / 500 Output Total Balance 500 / 500 Lab / Micro Data 01/22/23 05:30 01/22/23 05:30 Labs: Laboratory Results - last 24 hr 01/22/23 05:30: WBC 13.8 H, RBC 4.93, Hgb 11.6 L, Hct 37.9 L, MCV 76.9 L, MCH 23.5 L, MCHC 30.6 L, RDW Std Deviation 51.5 H, RDW Coeff of Octavio 18.7 H, Plt Count 248, MPV 10.6, Immature Gran % (Auto) 3.200 H, Neut % (Auto) 75.4 H, Lymph % (Auto) 6.0 L, [place] % (Auto) 14.8 H, Eos % (Auto) 0.2, Baso % (Auto) 0.4, Absolute Neuts (auto) 10.4 H, Absolute Lymphs (auto) 0.83, Nucleated RBC % 0, Differential Comment SCANNED, Diff Path Review July, Sodium 137, Potassium 2.7 L*, Chloride 101, Carbon Dioxide 24.0, Anion Gap 12, BUN 4 L, Creatinine 0.45 L, Estim Creat Clear Calc 202.78, Est GFR (MDRD) Af Amer 255, Est GFR (MDRD) Non-Af 211, BUN/Creatinine Ratio 8.9 L, Glucose 84, Calcium 8.4 L, Phosphorus 3.1, Magnesium 1.7, TSH 15.10 H Physical Exam Const alert and no apparent distress HEENT head/scalp atraumatic Psych affect normal Assessment & Plan Assessment/Plan (1) Hallucinations: PLAN: Resolved. Auditory and visual Etiology suspected to be multifacotrial due to alcohol withdrawal, being off his normal schedule (he works nights), pain medication. Patient was observed overnight and had no further hallucinations. Patient has never had this problem before. Patient has no prior history of psychiatric illness. Did inquire about impulsive behaviors but patient denies any periods hyper energy or periods of severe depression. (2) Hypertensive urgency: PLAN: Despite 10mg of lisinopril. Unclear if pt even taking it. Will increase dose to 40, as he was still hypertensive during last admission. Monitor. (3) Alcohol abuse: PLAN: Thiamine and folate for now. Uncomplicated here out. Patient did have alcohol induced pancreatitis. Patient has been advised that he may have some smoldering pancreatitis related with his alcohol use and advised complete cessation of alcohol. PLAN: Plan Chronic conditions: * Recent alcoholic pancreatitis: I suspect he has had chronic alcoholic pancreatitis. Advised complete cessation. * hx asthma-Has some wheezing-duoneb x1 and prn alb after DVT ppx: Lovenox subcu Discharge home.
[2023-01-23] MEDS: Potassium Chloride Oral Tablet 20 MEQ 40 MEQ PO (07:29)
[2023-01-23] MEDS: Folic Acid 1 MG Tablet PO (07:29)
[2023-01-23] MEDS: Pantoprazole Sodium 20 MG Tablet PO (07:29)
[2023-01-23] MEDS: Acetaminophen 325 MG Tablet 650 MG PO (07:35)
[2023-01-23 07:39] VITALS: RESP 18; O2SAT 98
[2023-01-23 08:18] VITALS: BP 158/101; PULSE 97; RESP 18; TEMP 37.1; O2SAT 98
--- NOTE | 2023-01-23 08:50 | PCM.DC.SUM ---
Providers Date of Admission: 01/21/23 Primary Care Physician: Edmar Faustin, FAMILY NURSE PRACTITIONER-C Reason For Visit: HALLUCINATIONS, OFF BALANCE Diagnosis Discharge Diagnosis (1) Hallucinations: Status: Acute Code(s): R44.3 - Hallucinations, unspecified Plan: Resolved. Auditory and visual Etiology suspected to be multifacotrial due to alcohol withdrawal, being off his normal schedule (he works nights), pain medication. Patient was observed overnight and had no further hallucinations. Patient has never had this problem before. Patient has no prior history of psychiatric illness. Did inquire about impulsive behaviors but patient denies any periods hyper energy or periods of severe depression. (2) Hypertensive urgency: Status: Acute Code(s): I16.0 - Hypertensive urgency Plan: Despite 10mg of lisinopril. Unclear if pt even taking it. Will increase dose to 40, as he was still hypertensive during last admission. Monitor. (3) Alcohol abuse: Status: Acute Code(s): F10.10 - Alcohol abuse, uncomplicated Plan: Thiamine and folate for now. Uncomplicated here out. Patient did have alcohol induced pancreatitis. Patient has been advised that he may have some smoldering pancreatitis related with his alcohol use and advised complete cessation of alcohol. Plan Chronic conditions: Recent alcoholic pancreatitis: I suspect he has had chronic alcoholic pancreatitis. Advised complete cessation. hx asthma-Has some wheezing-duoneb x1 and prn alb after DVT ppx: Lovenox subcu Discharge home. Medications at Discharge Home Medications Omeprazole [Prilosec] 20 mg PO DAILY 06/11/16 folic acid 1 mg tablet 1 mg PO BREAKFAST #30 tabs 01/20/23 thiamine HCl (vitamin B1) 100 mg tablet (Vitamin B-1) 100 mg PO BREAKFAST #30 tabs 01/20/23 lisinopril 40 mg tablet 40 mg PO DAILY #30 tabs 01/23/23 Hospital Course Operations None Procedures None Summary of Care Provided Hospital Course: Patient presents with auditory and visual hallucinations. Had been ongoing during his previous admission but did not alert anyone to that. I persisted after he was discharged and became very intense after discharge. Patient was brought in and evaluated. Patient was observed overnight and had no further hallucinations. It is felt that his hallucinations were likely multifactorial due to likely some component of alcohol withdrawal though not delirium tremens, likely altered circadian rhythm as patient typically works nights as well as pain medication and his underlying pancreatitis that he had had. Patient in the hospital his course was uncomplicated and he denied any further hallucinations. No additional work-up at this time. It seems unlikely this is primary psychiatric issue as he has never had this before. Patient advised to not drink alcohol any further as is concerning that he may have chronic pancreatitis due to alcohol use. Weight / BMI Weight Weight: 107.6 kg Body Mass Index (BMI) 34.0 ABG / Lab / Microbiology Data 01/22/23 05:30 01/22/23 05:30 Laboratory: Laboratory Results - last 24 hr 01/22/23 05:30: Sodium 137, Potassium 2.7 L*, Chloride 101, Carbon Dioxide 24.0, Anion Gap 12, BUN 4 L, Creatinine 0.45 L, Estim Creat Clear Calc 202.78, Est GFR (MDRD) Af Amer 255, Est GFR (MDRD) Non-Af 211, BUN/Creatinine Ratio 8.9 L, Glucose 84, Calcium 8.4 L, Phosphorus 3.1, Magnesium 1.7, TSH 15.10 H D/C Instructions Discharge Diet: No restrictions Meaningful Use Info Meaningful Use Diagnoses (Choose all that apply): None applicable Discharge Plan Admission Admit Date/Time: 01/21/23 15:55 Primary Reason for Your Visit: Hallucinations Attending Provider: Edy Diaz Primary Care Provider: Edmar Faustin FAMILY NURSE PRACTITIONER Consulting Providers: Janeth Cortez Instructions Additional Instructions / Restrictions: You had hallucinations were likely due to multitude of things, including some mild alcohol withdrawal, being for normal sleep schedule as well as some of the medications you may have received. No additional work-up necessary at this time unless the start to recur. He did have alcoholic pancreatitis last admission. Still continue to advise no alcohol consumption. Also be advised that marijuana can cause hallucinations as well so be cautious if you are going to be consuming them. Additionally, your blood pressure has been elevated, I have increased your lisinopril from 10 to 40 mg daily. Discharge Orders/Prescriptions Prescriptions: New lisinopril 40 mg Tablet 40 mg PO DAILY Qty: 30 0RF Continued Omeprazole [Prilosec] 40 MG capsule 20 mg PO DAILY thiamine HCl (vitamin B1) [Vitamin B-1] 100 mg Tablet 100 mg PO BREAKFAST Qty: 30 3RF folic acid 1 mg Tablet 1 mg PO BREAKFAST Qty: 30 3RF Discontinued oxycodone 5 mg tablet 2.5 mg PO Q6H PRN (Reason: pain (scale score 4-10) 3 Days Qty: 7 0RF Rx Instructions: Oxycodone 2.5 mg for 4-6/10 5 mg for 7?10/10 pain intensity lisinopril 10 mg tablet 10 mg PO DAILY Qty: 30 2RF Referrals / Follow Up: Edmar Faustin NP, FAMILY NURSE PRACTITIONER-C [Primary Care Provider] - Within 2 Weeks Disposition Disposition (needs filled in before D/C Order can be placed): Home, Self Care Charges/Coding Visit Charges Inpatient E&M: 40633 Disch Hosp
[2023-01-23 09:45] LABS: Vitamin B12 736 pg/mL (211-911)
[2023-01-23 09:54] VITALS: BP 158/101; PULSE 97; RESP 17; TEMP 37.1; O2SAT 98
[2023-01-24 08:17] LABS: Pathologist Review Reviewed
[2023-01-24 08:19] LABS: Pathologist Review Reviewed
== END 2023-01-23 09:52 | disposition home or self-care (01) ==
LOC: ED 15:37 → MS3 16:07
PROVIDERS: Admitting Provider Internal Medicine; Emergency Provider Emergency Medicine; PCP Nurse Practitioner Family
DX: R44.3 Hallucinations, unspecified (principal); F10.10 Alcohol abuse, uncomplicated; I16.0 Hypertensive urgency; J45.909 Unspecified asthma, uncomplicated; I10 Essential (primary) hypertension; Z79.899 Other long term (current) drug therapy
CPT/HCPCS: 36415; 70450; 80048; 80053; 80307; 81001; 82077; 82607; 82746; 83690; 83735; 84100; 84443; 85025; 93005; 94640; 96361; 96365; 96366; 96372; 96375; 96376; 99221; 99285; J7030; A4216; G0378; J2405; J3490

== ENCOUNTER 2023-01-30 19:32 | Emergency (ER) | payer BC, SELFPAY ==
[2023-01-30 19:34] VITALS: BP 137/86; PULSE 94; RESP 18; TEMP 37.2; O2SAT 95; BMI 32.2
--- NOTE | 2023-01-30 20:36 | CT_ITS ---
We are attempting to reach an attending provider to discuss findings. An addendum with communication details will be sent when the communication is complete. EXAM: CT ABDOMEN AND PELVIS WITH INTRAVENOUS CONTRAST CLINICAL INDICATION: ABDOMINAL PAIN TECHNIQUE: Helically acquired images were obtained of the abdomen and pelvis with intravenous contrast. This CT exam was performed using one or more of the following dose reduction techniques: automated exposure control, adjustment of the mA and/or kV according to patient size, and/or use of iterative reconstruction technique. CONTRAST: IV 100mL Isovue-370 COMPARISON: 01/16/2023 FINDINGS: LOWER THORAX: No significant abnormality. Lung bases are clear. No cardiomegaly. No significant pericardial effusion. ABDOMEN: LIVER: No significant abnormality. Homogeneous. No focal mass. GALLBLADDER AND BILE DUCTS: No significant abnormality. No calcified gallstones. No gallbladder distention or wall edema. No intra- or extrahepatic biliary ductal dilation. PANCREAS: Interval progression of previously demonstrated pancreatitis now with multiple fluid collections in and around the pancreas consistent with pseudocysts/abscesses. The largest peripancreatic fluid collection measures up to 14.2 cm in diameter. SPLEEN: No significant abnormality. Normal size without focal cystic or solid mass. ADRENALS: No significant abnormality. No nodules. KIDNEYS AND URETERS: No significant abnormality. Normal renal size and position. No hydronephrosis. STOMACH AND BOWEL: Colonic diverticulosis without discrete evidence of acute diverticulitis. No stomach or bowel distention. PELVIS: APPENDIX: No evidence of acute appendicitis. BLADDER: No significant abnormality. REPRODUCTIVE: Normal as visualized. No mass. ABDOMEN and PELVIS: INTRAPERITONEAL SPACE: No significant abnormality. No ascites or other fluid collection. No free air. BONES/JOINTS: No significant abnormality. No suspicious lytic or blastic abnormality. SOFT TISSUES: No significant abnormality. No discrete abdominal or pelvic wall hernia. VASCULATURE: Narrow although not distinctly thrombosed superior mesenteric vein. 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 Abdominal aorta is non-dilated. No evidence of portal vein thrombosis. LYMPH NODES: No significant abnormality. No enlarged lymph nodes. CT/Abdomen/Pelvis W IV Cont ONLY IMPRESSION: 1. Interval progression of previously demonstrated pancreatitis now with multiple fluid collections in and around the pancreas consistent with pseudocysts/abscesses. 2. Narrow although not distinctly thrombosed superior mesenteric vein. 3. 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 4. Colonic diverticulosis without discrete evidence of acute diverticulitis. Electronically Signed: Darrell Quintero DO at 21:55 EST ,
--- NOTE | 2023-01-30 20:37 | EDS_ITS ---
HPI History of Present Illness Chief Complaint: Abd Pain Narrative Narrative: 52-year-old male past medical history of hypertension and GERD, states that he was admitted to the hospital for alcoholic pancreatitis a week or 2 ago. He has quit drinking alcohol, but presents with intermittent fevers, cough, shortness of breath, and lower abdominal pain that he has had over the last week. States he gets intermittent diarrhea as well. He does not smoke. States he had fevers and was feeling badly. Has had a cough that is productive of sputum. He states his fevers would go up and down throughout the last week. Feels there is something else going on with his fevers, not feeling well over the last week. [facility] Medical History Hypertensive urgency Leukocytosis Home Medications Omeprazole [Prilosec] 20 mg PO DAILY 06/11/16 [History Last Taken 01/16/23] folic acid 1 mg tablet 1 mg PO BREAKFAST #30 tabs 01/20/23 [Rx Last Taken Unknown] thiamine HCl (vitamin B1) 100 mg tablet (Vitamin B-1) 100 mg PO BREAKFAST #30 tabs 01/20/23 [Rx Last Taken Unknown] lisinopril 40 mg tablet 40 mg PO DAILY #30 tabs 01/23/23 [Rx Last Taken Unknown] Allergy/AdvReac Type Severity Reaction Status Date / Time No Known Allergies Allergy Verified 01/30/23 19:33 Social History Smoking Status: Never smoker ROS ROS ED ROS Narrative Constitutional: Fluctuating fever, no chills. HEENT: No sore throat. No neck pain. No loss of vision. No rhinorrhea. Cardiovascular: No chest pain. No palpitations. No pedal edema. Respiratory: Positive cough, occasional shortness of breath. Abdominal: Positive lower abdominal pain. No nausea. No vomiting. Genitourinary: No dysuria. No hematuria. Musculoskeletal: No myalgias. No arthralgias. Neurologic: No headaches. No dizziness. No lightheadedness. Skin: No rash. No change in color. Psychiatric: No depression. No anxiety. EXAM Physical Exam Narrative Exam Narrative: Afebrile. Vital signs noted. HEENT: Normocephalic. Atraumatic. PERRL, EOMI. Neck soft and supple. No point tenderness or step off. Cardiovascular: Regular rate and rhythm. No murmurs, rubs, or gallops appreciated. Respiratory: No tachypnea. Positive expiratory wheeze bilateral bases, moving a good amount of air. Gastrointestinal: Abdomen soft, mild tenderness bilateral lower quadrants, left greater than right with normoactive bowel sounds. No rebound or guarding. Neurological: Awake. Alert. Nonfocal, nonlateralizing. Skin: No rash. Normal color. No pallor. Musculoskeletal: No pedal edema. Full range of motion extremities. Const Vital Signs: 01/30/23 19:34 01/30/23 21:04 01/30/23 22:35 Temperature 98.9 F Temperature Source Temporal Pulse Rate 94 96 85 Respiratory Rate 18 18 14 Blood Pressure 137/86 H 135/78 H Blood Pressure Mean 103 97 Pulse Ox 95 98 Oxygen Delivery Method Room Air MDM MDM MDM Narrative Medical decision making narrative: Given his overall picture, concern would be for pneumonia versus bronchitis for his wheezing and upper respiratory infection type symptoms. He may have COVID or influenza as well given his intermittent fevers. For his lower abdominal pain he may have diverticulitis or colitis as he also states he has intermittent diarrhea. I have lower concern for ureterolithiasis as he has not had any hematuria or dysuria. He will be given an albuterol aerosolized treatment and chest x-ray in 1 view will be obtained. He will be swabbed for COVID and influenza. I will obtain basic laboratory work and a CT of the abdomen and pelvis with IV contrast. He was administered morphine and ondansetron for analgesia. I reviewed his laboratory work and he has normal white count 10.4, hemoglobin stable at 10.4 as well, platelet count elevated at 591 which I think is an acute phase reactant. Sodium slightly low at 135 which I think is nonspecific, potassium normal at 3.5. AST and ALT are normal at 22 and 26 respectively. Additionally, lipase is slightly elevated at 134. This is improved over previous. I received a call from the radiologist regarding the CT scan with IV contrast. There is extensive pseudocyst versus abscess formation. Patient does not have a fever or white count so I will defer antibiotics. He has a pseudocyst/fluid collection is largest 14.2 cm in diameter. Initially, I discussed this with the hospitalist who recommended that I speak with general surgery. I spoke with Dr. James who has deferred to gastroenterology. I then discussed patient with Dr. Duke who agrees that the patient will most likely need transfer for IR intervention versus surgical intervention for drainage of a very large pseudocyst/abscess. I have contacted the [facility] transfer line and am pending discussion with the either surgery or medicine. However, they state that there are no current beds available but I will discuss it with them for him to be put on the waiting list. He may require admission here after 6 hours. Patient is agreeable to the plan. Condition is stable currently. I was able to speak with the [place] [facility] transfer line. He has been accepted by Dr. Mcdonnell with medicine who will consult surgery as needed versus IR. Plan will be for transfer. History & Record Review Discussion w/independent historian: Patient Additional record(s) reviewed:: Prior ED visit and Prior labs Lab Data Attestation: I reviewed the patient's lab results. Labs: Laboratory Results - last 24 hr 01/30/23 01/30/23 20:58 21:10 WBC 10.4 RBC 4.46 L Hgb 10.4 L Hct 34.4 L MCV 77.1 L MCH 23.3 L MCHC 30.2 L RDW Std Deviation 51.0 H RDW Coeff of Octavio 18.2 H Plt Count 591 H MPV 9.4 Immature Gran % (Auto) 0.700 Neut % (Auto) 78.9 H Lymph % (Auto) 8.6 L [place] % (Auto) 10.2 H Eos % (Auto) 1.0 Baso % (Auto) 0.6 Absolute Neuts (auto) 8.3 H Absolute Lymphs (auto) 0.90 Nucleated RBC % 0 Sodium 135 L Potassium 3.5 Chloride 99 Carbon Dioxide 29.0 Anion Gap 7 BUN 12 Creatinine 0.60 L Estim Creat Clear Calc 152.08 Est GFR (MDRD) Af Amer 184 Est GFR (MDRD) Non-Af 152 BUN/Creatinine Ratio 20.1 H Glucose 98 Calcium 8.9 Total Bilirubin 0.40 AST 22 ALT 26 Alkaline Phosphatase 76 Total Protein 7.1 Albumin 2.8 L Globulin 4.3 H Albumin/Globulin Ratio 0.7 L Lipase 134 H Urine Color Yellow Urine Clarity Sl. Cloudy Urine pH 6.0 Ur Specific [place] 1.020 Urine Protein 30 H Urine Glucose (UA) Normal Urine Ketones 5 H Urine Occult Blood Negative Urine Nitrite Negative Urine Bilirubin Negative Urine Urobilinogen 1 H Ur Leukocyte Esterase 25 H Urine RBC 0 SEEN Urine WBC 0-5 SEEN Ur Squamous Epith Cells 0 SEEN Urine Bacteria RARE Urine Mucus 0 SEEN Radiography Diagnostic Testing: Clinical Impression(s) from Imaging Studies Abdomen/Pelvis CT 01/30/23 20:36 IMPRESSION: 1. Interval progression of previously demonstrated pancreatitis now with multiple fluid collections in and around the pancreas consistent with pseudocysts/abscesses. 2. Narrow although not distinctly thrombosed superior mesenteric vein. 3. 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 4. Colonic diverticulosis without discrete evidence of acute diverticulitis. Electronically Signed: Darrell Quintero DO at 21:55 EST , ADDENDUM: 01/30/23 2226 IMPRESSION: 1. Interval progression of previously demonstrated pancreatitis now with multiple fluid collections in and around the pancreas consistent with pseudocysts/abscesses. 2. Narrow although not distinctly thrombosed superior mesenteric vein. 3. 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 4. Colonic diverticulosis without discrete evidence of acute diverticulitis. N.B. : The above Results were Read Back by Darrell Quintero DO to Walker Myers MD, and understanding confirmed on 01/30/2023 22:19:24 (ET). Electronically Signed: Darrell Quintero DO at 21:55 EST , Chest X-Ray 01/30/23 21:05 IMPRESSION: No radiographic evidence of acute cardiopulmonary disease. Electronically Signed: Darrell Quintero DO at 21:31 EST , Management Discussion w/another healthcare provider: Hospitalist (Dr. Patricia Carvalho) and Accounts Payable Manager (Dr. Duke, gastroenterology and Dr. James, general surgery) Discharge Plan Triage Chief Complaint: Abd Pain ED Provider: Walker Myers Dx/Rx/DC Orders Clinical Impression: Fluid collection of pancreas, Abdominal pain Prescriptions: No Action Omeprazole [Prilosec] 40 MG capsule 20 mg PO DAILY thiamine HCl (vitamin B1) [Vitamin B-1] 100 mg Tablet 100 mg PO BREAKFAST Qty: 30 3RF folic acid 1 mg Tablet 1 mg PO BREAKFAST Qty: 30 3RF lisinopril 40 mg Tablet 40 mg PO DAILY Qty: 30 0RF Primary Care Provider: Care Physician,No Primary Referrals: Care Physician,No Primary [Primary Care Provider] - Disposition Disposition: Acute Care Hospital Discharge Location: [facility]
[2023-01-30] MEDS: Albuterol 2.5 MG/3 ML VIAL.NEB. INHALATION (21:02)
[2023-01-30 21:04] VITALS: PULSE 96; RESP 18
[2023-01-30 21:04] LABS: Absolute Neutrophil Count 8.3 X10^3/uL (2.0-7.7); Basophil# 0.06 X10^3/uL; Basophil% 0.6 % (0-1); Hematocrit 34.4 % (40-54); Hemoglobin 10.4 g/dL (13.0-16.5); Lymphocyte % 8.6 % (19-41); Mean Corp Hgb Conc 30.2 g/dL (32-36); Mean Corpuscular Hgb 23.3 pg (27.0-32.0); Mean Corpuscular Volume 77.1 fL (80-94); Mean Platelet Vol. 9.4 fl (6.2-12.0); Monocyte# 1.06 X10^3/uL; Monocyte% 10.2 % (0-10); NRBC Flagged by Analyzer 0 % (0-5); Neutrophil # 8.25 X10^3/uL (2.7-7.7); Neutrophil % 78.9 % (47-70); Platelet Count 591 K/mm3 (150-450); RBC Distribution Width CV 18.2 % (11.6-14.6); Red Blood Count 4.46 M/mm3 (4.6-6.2); White Blood Count 10.4 K/mm3 (4.4-11.0)
[2023-01-30] MEDS: 0.9% Normal Saline (1000mL) 1,000 ML 1000 ML IV (21:05)
--- NOTE | 2023-01-30 21:05 | RAD_ITS ---
EXAM: XR CHEST, 1 VIEW CLINICAL INDICATION: COUGH TECHNIQUE: Frontal view of the chest. COMPARISON: No relevant prior studies available. FINDINGS: LUNGS AND PLEURAL SPACES: No significant abnormality. No consolidation or edema. No pneumothorax. No effusion. HEART: No significant abnormality. Cardiac silhouette not enlarged. MEDIASTINUM: Central airways and mediastinal contour are unremarkable. BONES/JOINTS: No significant abnormality. SOFT TISSUES: No significant abnormality. RAD/Chest 1 View (Portable) IMPRESSION: No radiographic evidence of acute cardiopulmonary disease. Electronically Signed: Darrell Quintero DO at 21:31 EST ,
[2023-01-30 21:14] LABS: Mucous, Urine 0 SEEN /hpf (<or=2+); Red Blood Cells-Urine 0 SEEN /hpf (0-5); Squamous Epithelial Cells - UA 0 SEEN /hpf (0-5)
[2023-01-30 21:16] LABS: Color, Urine Yellow (Yellow); Glucose, Dipstick Normal (Normal); Ketone-Dipstick 5 mg/dl (Negative); Leukocyte Esterase-Dipstick 25 /ul (Negative); Nitrite-Dipstick Negative (Negative); Occult Blood-Urine Negative /ul (Negative); Protein-Dipstick 30 mg/dl (Negative); Urine Bilirubin Dipstick Negative (Negative); Urine Clarity Sl. Cloudy (Clear); Urine Urobilinogen 1 mg/dl (Normal)
[2023-01-30 21:23] LABS: White Blood Cells 0-5 SEEN /hpf (0-5)
[2023-01-30 21:24] LABS: Bacteria RARE /hpf (None Seen)
[2023-01-30 21:24] LABS: ALB/GLOB Ratio 0.7 RATIO (0.9-2.4); AST(SGOT) 22 U/L (15-37); Alanine Aminotransfer ALT/SGPT 26 U/L (16-61); Albumin, Serum 2.8 g/dL (3.2-5.0); Alkaline Phosphatase 76 U/L (45-117); Anion Gap 7 (5-15); BUN 12 mg/dL (7-18); BUN/Creat Ratio 20.1 RATIO (10-20); Calcium,Total 8.9 mg/dL (8.5-10.1); Chloride 99 mmol/L (98-107); EST Glomerular Filtration Rate 152 mL/min (>60); Est Glom Filt Rate - Afr Amer 184 mL/min (>60); Estimated Creatinine Clearance 152.08 ml/min; Globulin 4.3 g/dL (2.2-4.2); Glucose 98 mg/dL (74-106); Lipase 134 U/L (13-75); Potassium 3.5 mmol/L (3.5-5.1); Protein, Total 7.1 g/dL (6.4-8.2); Sodium Level 135 mmol/L (136-145)
[2023-01-30] MEDS: Ondansetron 4 MG/2 ML Vial IV (22:03)
[2023-01-30] MEDS: Morphine 4 MG/ML Syringe IV (22:03)
[2023-01-30 22:35] VITALS: BP 135/78; PULSE 85; RESP 14; O2SAT 98
[2023-01-30 23:32] VITALS: PULSE 86; RESP 14; O2SAT 98
--- NOTE | 2023-01-31 00:31 | ED.RN ---
PT ACCEPTED AT [facility] RM [id number] BARTLETT. [place] ETA 3 HRS APPROX 0330AM.
[2023-01-31] MEDS: Morphine 4 MG/ML Syringe IV ×2 (01:53→05:12)
[2023-01-31 01:58] VITALS: BP 159/81; PULSE 81; RESP 16; TEMP 36.7; O2SAT 98
[2023-01-31 04:47] VITALS: BP 108/74; PULSE 67; RESP 18; O2SAT 99
[2023-01-31] MEDS: Ondansetron 4 MG/2 ML Vial IV (05:01)
== END 2023-01-31 04:54 | disposition short-term general hospital (02) ==
PROVIDERS: Emergency Provider Emergency Medicine; Visit Provider Emergency Medicine
DX: R10.9 Unspecified abdominal pain (principal); I10 Essential (primary) hypertension; K86.89 Other specified diseases of pancreas; K21.9 Gastro-esophageal reflux disease without esophagitis; Z79.899 Other long term (current) drug therapy
CPT/HCPCS: 71045; 74177; 80053; 81001; 83690; 85025; 87428; 94640; 96361; 96374; 96375; 96376; 99285; J7030; Q9967; A4216; J2405

== ENCOUNTER 2023-02-04 19:13 | Emergency (ER) | payer BC, SELFPAY ==
[2023-02-04 19:14] VITALS: BP 187/97; PULSE 67; RESP 18; TEMP 36.5; O2SAT 99; BMI 33.0
--- NOTE | 2023-02-04 19:27 | ED.RN ---
PATIENTS FATHER AND MOTHER ON SEPARATE OCCASIONS ARE REQUESTING PATIENT HAVE PAIN MEDICATION. PT AND PTS FAMILY HAS BEEN INFORMED HE CANNOT HAVE ANY PAIN MEDICATION UNTIL HE IS EVALUATED BY A DOCTOR. FAMILY HAS ROLLED THEIR EYES AT THIS RN AND WALKED AWAY.
--- NOTE | 2023-02-04 19:32 | CT_ITS ---
STUDY: CT ABDOMEN AND PELVIS WITH AND WITHOUT CONTRAST REASON FOR EXAM: Male, 52 years old. abd pain, recent on hospitalization for pancreatitis RADIATION DOSAGE (If Supplied By Facility): CTDIvol = ( 26.73 ) mGy, DLP = ( 2753.31 ) mGycm TECHNIQUE: Transaxial images were obtained from the dome of the diaphragm to the symphysis pubis without oral contrast. IV 100mL Isovue-370 was administered. Sagittal and coronal images were reconstructed. Individualized dose optimization techniques were used for this CT. COMPARISON: 01/30/2023 FINDINGS: Small bilateral pleural effusions and atelectasis in the lung bases. The visualized portions of the heart are within normal limits. Normal liver. Tiny gallstone or wall calcification. Normal spleen. Diffusely abnormal pancreas with increased peripancreatic edema and localized fluid, along the prior exam. For instance, dominant collection anterior to the left kidney measures 9.4 x 11.5 cm (previously measured 6.5 x 9.2 cm). Diminished enhancement of the pancreatic body on image 40 of series 3. There is deformation of the pancreatic head on image 49 of series 3, not substantially changed. No pseudoaneurysm identified. Normal bilateral adrenal glands. Normal right kidney. Normal left kidney. Normal visualized stomach. No dilated small bowel. Small duodenal diverticulum. No colon wall thickening. The appendix is not seen. There is diffuse atherosclerotic calcification of the abdominal aorta, without a demonstrated aneurysm. Normal inferior vena cava. Normal retroperitoneum. Normal urinary bladder. Normal abdominal wall. There are diffuse degenerative changes of the visualized lumbar spine. CT/CT Abd/Pelvis W/WO Contrast IMPRESSION: 1. Since 01/30/2023, unfavorable change worsening pancreatitis (including necrotizing features) with acute necrotic collections. 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 Electronically Signed: Alexander Lai MD ([place]) at 20:56 EST ,
--- NOTE | 2023-02-04 19:34 | ED.VIS.GI ---
HPI HPI - GI History of Present Illness Chief Complaint: Abd Pain Informant: patient and family Abdominal Pain/Flank Pain Onset: Days Context: Gradual Onset Timing: Continuous Quality: Aching Location: Diffuse Current Severity: Moderate Maximum Severity: Moderate Worsened by: Nothing Relieved by: Nothing Nausea/Vomiting/Emesis GI Symptom: Positive for Nausea and Vomiting Onset: Today Severity: Mild Diarrhea/Melena/Hematochezia GI Symptom: Negative for Diarrhea, Melena or Hematochezia Associated Symptoms Associated Symptoms: Negative for Dysuria, Frequency, Hematuria or Urgency Narrative Narrative: 52-year-old male history of alcohol induced pancreatitis with pseudocyst. Has been seen here recently was transferred to [facility]. He was evaluated there and discharged from the hospital this morning. They are planning to do upper endoscopy to possibly drain the pseudocyst in several weeks. Patient states he went out with started having more pain with nausea and vomiting and thought he needed to be evaluated. Denies any alcohol use for the last several weeks. Denies any prior abdominal surgery. Prior similar symptoms: Yes Recent Illness/Hospitalization: Yes PFSH PFSH Medical History Hypertensive urgency Leukocytosis Home Medications Omeprazole [Prilosec] 20 mg PO DAILY 06/11/16 [History Last Taken 01/16/23] folic acid 1 mg tablet 1 mg PO BREAKFAST #30 tabs 01/20/23 [Rx Last Taken Unknown] thiamine HCl (vitamin B1) 100 mg tablet (Vitamin B-1) 100 mg PO BREAKFAST #30 tabs 01/20/23 [Rx Last Taken Unknown] lisinopril 40 mg tablet 40 mg PO DAILY #30 tabs 01/23/23 [Rx Last Taken Unknown] Allergy/AdvReac Type Severity Reaction Status Date / Time No Known Allergies Allergy Verified 01/30/23 19:33 Social History Smoking Status: Never smoker ROS ROS ED ROS Narrative Abdominal pain. Nausea vomiting. Review of Systems ROS Unobtainable: Denies due to encephalopathy Constitutional Constitutional ED: Denies chills or fever(s) ENT ENT ED: Denies ear pain Cardiovascular Cardiovascular: Denies chest pain Respiratory/Chest Respiratory/Chest: Denies cough or dyspnea Gastrointestinal Gastrointestinal: Reports abdominal pain, nausea and vomiting; Denies constipation, diarrhea or melena Genitourinary Genitourinary ED: Denies dysuria or hematuria Musculoskeletal Musculoskeletal: Denies arthralgias Integumentary Denies abscess Neurologic Neurologic: Denies headache(s) Psychiatric Psychiatric: Denies anxiety Endocrine Endocrinology: Denies polydipsia Hematologic/Lymphatic Hematologic/Lymphatic: Denies easy bleeding Allergic/Immunologic Allergic/Immunologic ED: Denies mouth swelling or tongue swelling EXAM Physical Exam Narrative Exam Narrative: 52-year-old male vital signs are stable and afebrile. He does not look septic or toxic. HEENT exam unremarkable. Neck nontender. No lymphadenopathy. Lungs clear to auscultation bilaterally. Heart regular rhythm rate about 70 no murmur. Chest were nontender. Abdomen soft. Mildly distended. Diffusely tender. He may have periumbilical hernia also. That is tender to palpation. Moving all 4 extremities. Calves are nontender without edema. Neurologically is awake and alert with no focal motor deficits. 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 Answering questions and following commands. Const Vital Signs: 02/04/23 19:14 Temperature 97.7 F L Temperature Source Temporal Pulse Rate 67 Respiratory Rate 18 Blood Pressure 187/97 H Blood Pressure Mean 127 Pulse Ox 99 Oxygen Delivery Method Room Air Positive well nourished and well developed; Negative for cachectic, contractures or unkempt General Appearance ED: well developed; Negative for unkempt, cachectic, contractures or pallor Nutritional Appearance: Negative for cachectic HEENT Reports moist mucous membranes normocephalic and atraumatic; Negative for trauma or tenderness Eyes PERRL and EOMs intact bilaterally General Eye ED: Negative for pale conjunctiva or scleral icterus Neck no lymphadenopathy, supple and no JVD General: Negative for tenderness Carotids: Negative for other Resp normal respiratory effort and clear to auscultation bilaterally Effort and Inspection: Negative for respiratory distress Auscultation: Negative for rales, rhonchi or wheezes Cardio regular rate, regular rhythm, S1 normal heart sound, S2 normal heart sound and no murmurs Rate: Negative for bradycardia or tachycardic Rhythm: Negative for abnormal rhythm GI no masses; Negative for non-tender or non-distended GI Narrative: Diffuse abdominal tenderness. Minimal distention. Possible periumbilical hernia with tenderness. Inspection: abdominal distention Auscultation: normoactive bowel sounds Palpation: soft and tender; Negative for guarding, rigid, hepatomegaly, splenomegaly, hernia, mass, pulsatile mass or rebound tenderness present Back/Spine no CVA tenderness General Back: Negative for CVA tenderness Cervical Spine: Negative for cervical spine tenderness Thoracic Spine / Upper Back: Negative for thoracic spinal tenderness Lumbar Spine / Lower Back: Negative for lumbar spinal tenderness Coccyx: Negative for other Extremity full ROM General Extremety ED: Negative for edema or tenderness General Extremity: Negative for edema Neuro CN's II-XII intact bilaterally and moves all extremities Sensorium / Orientation: alert, oriented to person, oriented to place and oriented to time; Negative for orientation impaired, confused, lethargic or stuporous Motor Exam: strength 5/5 throughout Psych mental status grossly normal and thought process normal Appearance: Negative for unkempt Attitude: No agitated Mood & Affect: Negative for depressed, anxious or tearful Skin no wounds General Skin Exam: Negative for jaundice or pallor Lesions: no lesions Rashes: no rashes Trauma: Negative for abrasion or other Nails: Negative for discolored MDM MDM MDM Narrative Medical decision making narrative: 52-year-old with known pancreatitis with pseudocyst complaining abdominal pain with nausea and vomiting. This may be from recurrent pancreatitis versus periumbilical hernia and/or obstruction versus other etiologies. CAT scan and labs are pending. Treated with IV morphine and Zofran. Repeat exam patient is doing well at 8:45 PM. He was given additional morphine. We gone over his labs were awaiting his formal CAT scan read. Repeat exam patient is on okay at 9:20 PM. We went over his CAT scan results. Per the radiologist it looks worse than the prior CAT scans. Patient and family requested if possible to be transferred to [facility]. I have a call out to their transfer center. History & Record Review Discussion w/independent historian: Patient Additional record(s) reviewed:: Prior inpatient record, Prior ED visit and Prior labs Lab Data Attestation: I reviewed the patient's lab results. Lab results narrative: BC shows an elevated white count 17.9. H&H of 10.2 and 33.4. Platelets of 557. Electrolytes show sodium 134. Gap is 6. Normal BUN 9 creatinine 0.65. Glucose 127. Liver enzymes unremarkable. Amylase slightly elevated 118. Lipase elevated 267. However 2 weeks ago the lipase was over 2000. Alcohol level is negative. Labs: Laboratory Results - last 24 hr 02/04/23 19:46 WBC 17.9 H RBC 4.39 L Hgb 10.2 L Hct 33.4 L MCV 76.1 L MCH 23.2 L MCHC 30.5 L RDW Std Deviation 50.0 H RDW Coeff of Octavio 18.4 H Plt Count 557 H MPV 9.4 Immature Gran % (Auto) 0.400 Neut % (Auto) 86.9 H Lymph % (Auto) 4.9 L [place] % (Auto) 7.4 Eos % (Auto) 0.2 Baso % (Auto) 0.2 Absolute Neuts (auto) 15.5 H Absolute Lymphs (auto) 0.88 Nucleated RBC % 0 Sodium 134 L Potassium 3.6 Chloride 99 Carbon Dioxide 29.0 Anion Gap 6 BUN 9 Creatinine 0.65 L Estim Creat Clear Calc 140.38 Est GFR (MDRD) Af Amer 166 Est GFR (MDRD) Non-Af 137 BUN/Creatinine Ratio 13.8 Glucose 127 H Calcium 8.8 Total Bilirubin 0.40 AST 22 ALT 23 Alkaline Phosphatase 61 Total Protein 7.1 Albumin 2.8 L Globulin 4.3 H Albumin/Globulin Ratio 0.7 L Amylase 118 H Lipase 267 H Ethyl Alcohol < 3.0 Radiography Diagnostic Testing: Clinical Impression(s) from Imaging Studies Abdomen/Pelvis CT 02/04/23 19:32 IMPRESSION: 1. Since 01/30/2023, unfavorable change worsening pancreatitis (including necrotizing features) with acute necrotic collections. 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 Electronically Signed: Alexander Lai MD ([place]) at 20:56 EST , Discharge Plan Triage Chief Complaint: Abd Pain ED Provider: Wiley Espinoza Dx/Rx/DC Orders Prescriptions: No Action Omeprazole [Prilosec] 40 MG capsule 20 mg PO DAILY thiamine HCl (vitamin B1) [Vitamin B-1] 100 mg Tablet 100 mg PO BREAKFAST Qty: 30 3RF folic acid 1 mg Tablet 1 mg PO BREAKFAST Qty: 30 3RF lisinopril 40 mg Tablet 40 mg PO DAILY Qty: 30 0RF Primary Care Provider: Care Physician,No Primary Referrals: Care Physician,No Primary [Primary Care Provider] -
[2023-02-04] MEDS: Ondansetron 4 MG/2 ML Vial IV (19:48)
[2023-02-04] MEDS: morphine 8 MG/ML Syringe IV ×2 (19:48→21:19)
[2023-02-04 19:51] LABS: Absolute Lymphocyte Count 0.88 X10^3/uL (0.83-4.51); Absolute Neutrophil Count 15.5 X10^3/uL (2.0-7.7); Basophil# 0.04 X10^3/uL; Basophil% 0.2 % (0-1); Eosinophil# 0.03 X10^3/uL; Eosinophils% 0.2 % (0-5); Hematocrit 33.4 % (40-54); Hemoglobin 10.2 g/dL (13.0-16.5); Lymphocyte # 0.88 X10^3/ul (0.83-4.51); Lymphocyte % 4.9 % (19-41); Mean Corp Hgb Conc 30.5 g/dL (32-36); Mean Corpuscular Hgb 23.2 pg (27.0-32.0); Mean Corpuscular Volume 76.1 fL (80-94); Mean Platelet Vol. 9.4 fl (6.2-12.0); Monocyte# 1.33 X10^3/uL; Monocyte% 7.4 % (0-10); NRBC Flagged by Analyzer 0 % (0-5); Neutrophil # 15.53 X10^3/uL (2.7-7.7); Neutrophil % 86.9 % (47-70); Platelet Count 557 K/mm3 (150-450); RBC Distribution Width CV 18.4 % (11.6-14.6); Red Blood Count 4.39 M/mm3 (4.6-6.2); White Blood Count 17.9 K/mm3 (4.4-11.0)
--- NOTE | 2023-02-04 19:52 | ED.RN ---
RN DRAWING PATIENTS BLOOD. FAMILY CONTINUES TO ASK RN WHAT SHE IS DOING AND IF SHE HAS PAIN MEDICATION SHE IS GOING TO GIVE HIM. RN INFORMED PATIENT AND FAMILY WE ARE STARTING WITH AN IV AND COLLECTING BLOOD. RN THEN INFORMED FAMILY HE IS GETTING ZOFRAN AND MORPHINE. PTS FATHER ASKS WHICH ONE IS FOR PAIN. PT AND PTS FAMILY HAS BEEN INFORMED PATIENT HAS RECEIVED MEDICATION FOR NAUSEA AND FOR PAIN. CT SCAN WILL BE IN ONCE HIS BLOODWORK IS BACK.
[2023-02-04 20:02] LABS: Alcohol, Blood (Medical)-Serum < 3.0 mg/dL
[2023-02-04] MEDS: 0.9% Normal Saline (1000mL) 1,000 ML 999 ML IV (20:04)
[2023-02-04 20:08] LABS: ALB/GLOB Ratio 0.7 RATIO (0.9-2.4); AST(SGOT) 22 U/L (15-37); Alanine Aminotransfer ALT/SGPT 23 U/L (16-61); Albumin, Serum 2.8 g/dL (3.2-5.0); Alkaline Phosphatase 61 U/L (45-117); Amylase 118 U/L (25-115); Anion Gap 6 (5-15); BUN 9 mg/dL (7-18); BUN/Creat Ratio 13.8 RATIO (10-20); Calcium,Total 8.8 mg/dL (8.5-10.1); Chloride 99 mmol/L (98-107); Creatinine, Serum 0.65 mg/dL (0.70-1.30); EST Glomerular Filtration Rate 137 mL/min (>60); Est Glom Filt Rate - Afr Amer 166 mL/min (>60); Estimated Creatinine Clearance 140.38 ml/min; Globulin 4.3 g/dL (2.2-4.2); Glucose 127 mg/dL (74-106); Lipase 267 U/L (13-75); Potassium 3.6 mmol/L (3.5-5.1); Protein, Total 7.1 g/dL (6.4-8.2); Sodium Level 134 mmol/L (136-145)
[2023-02-04] MEDS: DiphenhydrAMINE 50 MG/ML Syringe 25 MG IV (22:20)
[2023-02-04 22:25] VITALS: BP 168/94; PULSE 78; RESP 16; O2SAT 96
[2023-02-05] VITALS (9 sets, daily range): BP systolic 127–150; BP diastolic 69–73; PULSE 74–127; RESP 14–22; O2SAT 88–99
[2023-02-05] MEDS: fentaNYL 100 MCG/2 ML Ampul 25 MCG IV (05:13)
[2023-02-05] MEDS: Ondansetron 4 MG/2 ML Vial IV ×2 (05:13→20:48)
--- NOTE | 2023-02-05 06:43 | HP.PCM.HOS_ITS ---
[facility] Date of Admission: 02/05/23 Date of Service: 02/05/23 Chief Complaint: Abdominal pain HPI Narrative TASHIA JUAREZ, is a 52 M with a significant history of alcohol abuse with alcoholic pancreatitis who presents to the emergency department with excruciating lower abdominal pain that span across his entire lower abdomen and go to his back. He described the pain as sharp. His pain increased with food intake. Pain medication he received at the hospital helped with his pain. Associated with his symptoms is nausea and vomiting. Of note patient was admitted to the hospital on January 16 for alcohol pancreatitis. He was also treated for alcohol withdrawal. Eventually he was discharged home. However, he returned back to the emergency department because of fever; chills and abdominal pain. Imaging at that time showed a pancreatic cyst and patient was transferred to [facility]. He was discharged from [facility] on February 03 because although he had a pancreatic cyst it was at 3 different locations and the plan of [facility] surgeon was to wait for all 3 assist to coalesce together. On this new presentation at the emergency department family did not want patient to go back to [facility] because they think that the patient was discharged home too early and further no surgery was done at that time. Patient reported the last time he drank alcohol was about January 11, 2023 [facility] Medical History Hypertensive urgency Leukocytosis Home Medications Omeprazole [Prilosec] 20 mg PO DAILY 06/11/16 [History Last Taken 01/16/23] folic acid 1 mg tablet 1 mg PO BREAKFAST #30 tabs 01/20/23 [Rx Last Taken Unknown] thiamine HCl (vitamin B1) 100 mg tablet (Vitamin B-1) 100 mg PO BREAKFAST #30 tabs 01/20/23 [Rx Last Taken Unknown] lisinopril 40 mg tablet 40 mg PO DAILY #30 tabs 01/23/23 [Rx Last Taken Unknown] Allergy/AdvReac Type Severity Reaction Status Date / Time No Known Allergies Allergy Verified 01/30/23 19:33 Family History Other Cancer Diabetes Hypertension Surgical History History of tonsillectomy Social History Smoking Status: Never smoker ROS ROS Narrative Pertinent positives and pertinent negatives as noted in HPI. All other systems were reviewed and are negative . Vital Signs Vital Signs Vital Signs: 02/04/23 19:14 02/04/23 22:25 02/05/23 02:13 Temperature 97.7 F L Temperature Source Temporal Pulse Rate 67 78 127 H Respiratory Rate 18 16 22 H Blood Pressure 187/97 H 168/94 H 127/71 H Blood Pressure Mean 127 118 89 Pulse Ox 99 96 88 Oxygen Delivery Method Room Air Room Air Oxygen Flow Rate (L/min) 02/05/23 02:14 02/05/23 05:16 Temperature Temperature Source Pulse Rate 127 H Respiratory Rate 22 H 18 Blood Pressure 127/71 H Blood Pressure Mean 89 Pulse Ox 91 Oxygen Delivery Method Nasal Cannula Oxygen Flow Rate (L/min) 2 Weight Weight: 104.6 kg Body Mass Index (BMI) 33.0 Physical Exam Narrative Physical exam: General: Well-nourished, well-developed. Head: Normocephalic, atraumatic, no tenderness Eyes: Vision is grossly intact. EOMI ENT, no trauma, moist mucous membranes, no rhinorrhea Neck: Nontender, No thyromegaly. CVS: Regular rate and rhythm. S1-S2 present. No murmur, gallop or rub. Respiratory : clear to auscultation bilaterally, chest wall nontender Abdomen: Soft, nontender, nondistended, normal bowel sounds, no masses : Deferred Back: Nontender, no CVA tenderness, no midline spinal tenderness, deformities, step-offs Extremities: Nontender full range of motion, no trauma Skin: Normal color, no trauma, abrasions Neuro: Alert, oriented, cranial nerves II through XII grossly intact. Psychiatry: Normal mood. Normal affect. Not depressed. Not anxious. Results Lab / Micro Data Attestation: I reviewed the patient's lab results. 02/04/23 19:46 02/04/23 19:46 Labs: Laboratory Results - last 24 hr 02/04/23 19:46: WBC 17.9 H, RBC 4.39 L, Hgb 10.2 L, Hct 33.4 L, MCV 76.1 L, MCH 23.2 L, MCHC 30.5 L, RDW Std Deviation 50.0 H, RDW Coeff of Octavio 18.4 H, Plt Count 557 H, MPV 9.4, Immature Gran % (Auto) 0.400, Neut % (Auto) 86.9 H, Lymph % (Auto) 4.9 L, [place] % (Auto) 7.4, Eos % (Auto) 0.2, Baso % (Auto) 0.2, Absolute Neuts (auto) 15.5 H, Absolute Lymphs (auto) 0.88, Nucleated RBC % 0, Sodium 134 L, Potassium 3.6, Chloride 99, Carbon Dioxide 29.0, Anion Gap 6, BUN 9, Creatinine 0.65 L, Estim Creat Clear Calc 140.38, Est GFR (MDRD) Af Amer 166, Est GFR (MDRD) Non-Af 137, BUN/Creatinine Ratio 13.8, Glucose 127 H, Calcium 8.8, Total Bilirubin 0.40, AST 22, ALT 23, Alkaline Phosphatase 61, Total Protein 7.1, Albumin 2.8 L, Globulin 4.3 H, Albumin/Globulin Ratio 0.7 L, Amylase 118 H, Lipase 267 H, Ethyl Alcohol < 3.0 Imagaing Radiology Impression Abdomen/Pelvis CT 02/04/23 19:32 IMPRESSION: 1. Since 01/30/2023, unfavorable change worsening pancreatitis (including necrotizing features) with acute necrotic collections. 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 Electronically Signed: Alexander Lai MD ([place]) at 20:56 EST Reading Location ID and State: [facility] / [place] , Service support , Assessment & Plan Assessment/Plan (1) Acute necrotizing pancreatitis: (2) Pancreatic pseudocyst: (3) Hypertension: QUALIFIERS: Hypertension type: primary hypertension Qualified Code(s): I10 - Essential (primary) hypertension PLAN: Plan Acute pancreatic cyst with necrosis Labs reviewed showed white count of 17,900. Independent interpretation of CT scan: Pancreatic necrotic collections noted. Normal saline/lactate ronger's N.p.o. Morphine IV as needed; Zofran IV as needed and antibiotics recommended. Hypertension Stable Consider as needed hydralazine while patient is n.p.o. DVT prophylaxis Subcutaneous Lovenox ordered. Charges/Coding Multi Select Codes Visit Charges Office Visit/Consults: 85899 ED Visit; Moderate Severity
--- NOTE | 2023-02-05 07:36 | ED.RN ---
[facility] BY [facility]. PERAZA. WAITING CALL BACK FOR BED ASSIGNMENT.
[2023-02-05] MEDS: Morphine 4 MG/ML Syringe IV (11:07)
--- NOTE | 2023-02-05 13:24 | ED.RN ---
THIS RN CALLED TO CHECK ON PATIENT STATUS. PER TRANSFER CENTER, PT SHOULD HAVE A BED THIS AFTERNOON/EVENING. BUT HAS NO BED AT THIS TIME.
[2023-02-05] MEDS: fentaNYL 100 MCG/2 ML Ampul 50 MCG IV ×2 (15:17→20:47)
--- NOTE | 2023-02-05 17:35 | ED.RN ---
CALLED [facility] WITH THE TRANSFER LINE SAID AROUND 7 SHOULD HAVE AN AVAILABLE BED.
[2023-02-05 18:22] LABS: Absolute Lymphocyte Count 0.48 X10^3/uL (0.83-4.51); Absolute Neutrophil Count 11.2 X10^3/uL (2.0-7.7); Basophil# 0.04 X10^3/uL; Basophil% 0.3 % (0-1); Eosinophil# 0.43 X10^3/uL; Eosinophils% 3.4 % (0-5); Hematocrit 29.8 % (40-54); Hemoglobin 9.2 g/dL (13.0-16.5); Lymphocyte # 0.48 X10^3/ul (0.83-4.51); Lymphocyte % 3.7 % (19-41); Mean Corp Hgb Conc 30.9 g/dL (32-36); Mean Corpuscular Hgb 23.4 pg (27.0-32.0); Mean Corpuscular Volume 75.6 fL (80-94); Mean Platelet Vol. 9.7 fl (6.2-12.0); Monocyte# 0.63 X10^3/uL; Monocyte% 4.9 % (0-10); NRBC Flagged by Analyzer 0 % (0-5); Neutrophil # 11.18 X10^3/uL (2.7-7.7); Neutrophil % 87.2 % (47-70); POSITIVE DIFFERENTIAL YES; Platelet Count 438 K/mm3 (150-450); RBC Distribution Width CV 18.7 % (11.6-14.6); RBC Distribution Width SD 50.8 fl (35.1-43.9); Red Blood Count 3.94 M/mm3 (4.6-6.2); White Blood Count 12.8 K/mm3 (4.4-11.0)
[2023-02-05 18:23] LABS: Differential Indicated SCAN CRITERIA MET
[2023-02-05 18:39] LABS: ALB/GLOB Ratio 0.6 RATIO (0.9-2.4); AST(SGOT) 21 U/L (15-37); Alanine Aminotransfer ALT/SGPT 15 U/L (16-61); Albumin, Serum 2.3 g/dL (3.2-5.0); Alkaline Phosphatase 59 U/L (45-117); Anion Gap 7 (5-15); BUN 13 mg/dL (7-18); BUN/Creat Ratio 17.4 RATIO (10-20); Calcium,Total 8.3 mg/dL (8.5-10.1); Chloride 99 mmol/L (98-107); Creatinine, Serum 0.74 mg/dL (0.70-1.30); EST Glomerular Filtration Rate 118 mL/min (>60); Est Glom Filt Rate - Afr Amer 142 mL/min (>60); Estimated Creatinine Clearance 123.31 ml/min; Globulin 3.6 g/dL (2.2-4.2); Glucose 87 mg/dL (74-106); Lipase 84 U/L (13-75); Magnesium 1.7 mg/dL (1.6-2.6); Potassium 3.9 mmol/L (3.5-5.1); Protein, Total 5.9 g/dL (6.4-8.2); Sodium Level 134 mmol/L (136-145)
[2023-02-05 18:40] LABS: Differential Comment SCANNED
[2023-02-05 18:44] LABS: Phosphorus 3.5 mg/dL (2.5-4.9)
[2023-02-05] MEDS: Pantoprazole Sodium 40 MG in 0.9% Normal Saline (100mL MB+) 100 ML 330 MG IV (19:01)
[2023-02-05] MEDS: Piperacil/Tazobactam 3.375 GM in 0.9% Normal Saline (50mL MB+) 50 ML IV (19:21)
== END 2023-02-05 21:39 | disposition short-term general hospital (02) ==
PROVIDERS: Family Medicine; Emergency Provider Emergency Medicine; Visit Provider Emergency Medicine
DX: R10.9 Unspecified abdominal pain (principal); Z79.899 Other long term (current) drug therapy; I16.0 Hypertensive urgency
CPT/HCPCS: 74178; 80053; 82077; 82150; 83690; 83735; 84100; 85025; 96361; 96365; 96366; 96368; 96375; 96376; 99285; J7030; Q9967; A4216; J2405